=== PATIENT | male | born 1980 | race Caucasian/White ===

== ENCOUNTER 2017-03-13 04:08 | Inpatient (IN) ==
[2017-03-13] MEDS ORDERED: FUROSEMIDE 100 MG/10 ML VIAL IV STA (04:35)
[2017-03-13] MEDS ORDERED: ASPIRIN 325 MG TABLET PO STA (04:35)
[2017-03-13] MEDS ORDERED: ONDANSETRON ODT 4 MG TABLET PO STA (04:35)
[2017-03-13] MEDS ORDERED: MORPHINE 2 MG/1 ML SYRINGE IV STA (04:35)
[2017-03-13] MEDS ORDERED: ENOXAPARIN 100 MG/ML SYRINGE SUBCUT STA (04:35)
[2017-03-13] MEDS ORDERED: NITROGLYCERIN 2% OINT 1 INCH/GM PACK TOP STA (04:35)
--- NOTE | 2017-03-13 04:38 | EKG Report ---
Stationary ECG Study [facility] ER Test Date: 03/13/2017 4:27:05 AM Pat Name: ORQUIDEA FLOWER Department: Room: Gender: M Performance Tester: : 1980 Requested by: Lincoln Taveras Order Number: [id number] Reading MD: LUDY CANADA Intervals [place] Rate: 122 P: 94 [place]: 164 QRS: 130 QRSD: 166 T: -23 QT: 356 QTc: 428 Interpretive Statements SINUS TACHYCARDIA BI-ATRIAL ABNORMALITY LEFT BUNDLE BRANCH BLOCK LIMB LEAD REVERSAL Electronically Signed On 03-13-17 08:26:07 CDT by LUDY CANADA [email or web address]
[2017-03-13] MEDS ORDERED: ENOXAPARIN 120 MG/0.8 ML SYRINGE SUBCUT ONE (04:41)
[2017-03-13] MEDS ORDERED: NITROGLYCERIN 2% OINT 1 INCH/GM PACK TOP ONE (04:42)
[2017-03-13] MEDS ORDERED: FUROSEMIDE 100 MG/10 ML VIAL ONE (04:42)
[2017-03-13] MEDS ORDERED: ONDANSETRON 4 MG/2 ML VIAL ONE (04:42)
[2017-03-13] MEDS ORDERED: MORPHINE 2 MG/1 ML SYRINGE ONE (04:42)
[2017-03-13] MEDS ORDERED: ASPIRIN 325 MG TABLET ONE (04:42)
[2017-03-13] MEDS ORDERED: ONDANSETRON 4 MG/2 ML VIAL IV STA (04:44)
--- NOTE | 2017-03-13 04:48 | Emergency Department Note ---
Patric Herrera Brittany, am scribing for, and in the presence of, Lincoln Taveras MD 04:43. Nitin Hererra Robert M, MD, personally performed the services described in this documentation, ascribed by Priscilla Spivey in my presence, and it is both accurate and complete 448 . Arrival - Arrival Chief Complaint: Shortness of Breath Stated Complaint: chest pain ED Nursing Triage Note: Pt to triage with c/o bilateral legs being swollen, pt states he has CHF and needs fluid drain off of him. Pt c/o feeling SOB also. Mode of Arrival: Wheelchair Limitations: No Limitations Source: Patient, Guardian, RN Notes Reviewed Time Seen by Provider: 03/13/17 04:27 - History of Present Illness HPI Narrative: Patient is a 36 y/o white male presenting to the ED with c/o shortness of breath with an onset of tonight. Patient reports that he was diagnosed with CHF about 2 years ago when he noticed he had difficulty walking across the shop at work due to getting short of breath. After being placed on medications for a year his CHF was well managed. Later in that next year he was not taking his medications, unknown exactly what reason for this and since has been having difficulties managing exacerbations. Patient reports for the past 3 weeks he has been having some bilateral lower extremity edema and shortness of breath, worsening tonight upon waking out of his sleep feeling as if there was some swelling in his chest causing him to be dyspneic. Patient states he is a former patient of [facility] of [place], [place] but has "given up" on their facility and has been in search of new providers. Mother reports that patient presented to [facility] on March 07 and thought he would've gotten admitted but was DC'd. Patient presented to another facility days later and was admitted and recently DC'd. Patient has been on Lasix, but mother believes his current dosage is not enough. She states patient has a history of Anxiety Problems and at times will have Panic Attacks and hyperventilate. Prior to cutting off his care at [facility] patient states he at one time was supposed to have some stents placed, but never did. He has no other complaint/pain. Allergies/Adverse Reactions: Allergies Allergy/AdvReac Type Severity Reaction Status Date / Time No Known Allergies Allergy Unverified 03/13/17 04:16 Home Medications: Home Medications Medication Instructions Recorded Confirmed Type Furosemide 40 mg PO 03/13/17 History Metoprolol Tartrate 50 mg PO 03/13/17 History Potassium Chloride [Klor-Con M20] 20 meq PO 03/13/17 History levoFLOXacin [Levofloxacin Tab] 750 mg PO 03/13/17 History Review of System - Review of System 12 point system: reviewed and no additional remarkable complaints except as stated - Review of System Constitutional: Absent: chills, diaphoresis, fever Eyes: Absent: vision change Head/Ears/Nose/Throat: Absent: nasal drainage, sore throat Respiratory: Present: as per HPI, respiratory distress Cardiovascular: Present: edema. Absent: chest pain Gastrointestinal: Absent: abdominal pain, nausea, vomiting, diarrhea, constipation Genitourinary male: Absent: urgency, dysuria, frequency Musculoskeletal: Absent: arm pain, back pain, leg pain, neck pain Skin: Absent: rash Psychiatric: Present: anxiety Endocrine: Absent: fatigue Hematological/Lymphatic: Absent: easy bleeding, easy bruising Medical,Surgical,& Family Hx - Medical History Cardio: History of: CHF - Social History Smoking Status: Current every day smoker Frequency of Alcohol Use: None Type of Drug Use: None Exam Vital Signs: Vital Signs Temperature 97.5 F L 03/13/17 04:40 Pulse Rate 122 H 03/13/17 04:40 Respiratory Rate 20 03/13/17 05:00 Blood Pressure 131/81 03/13/17 04:40 O2 Sat by Pulse Oximetry 99 03/13/17 04:10 - General General appearance: alert, in no apparent distress - Head Head exam: Present: atraumatic, normocephalic, normal inspection - Eye Eye exam: Present: normal appearance, PERRL, EOMI - ENT ENT exam: Present: normal exam, normal oropharynx - Neck Neck exam: Present: normal inspection, full ROM, trachea midline - Chest Chest inspection: Present: normal inspection, symmetric chest wall rise - Respiratory Respiratory exam: Present: rhonchi (rhonchi bilaterally). Absent: normal lung sounds bilaterally - Cardiovascular Cardiovascular exam: Present: normal rhythm, tachycardia, normal heart sounds. Absent: regular rate - Abdominal Exam Abdominal exam: Present: soft, normal bowel sounds. Absent: distention, tenderness - Extremities Exam Extremities exam: Present: full ROM, pedal edema (+4 pitting edema to bilateral lower extremities). Absent: normal inspection (erythematous and warm to touch bilateral lower extremities) - Back Exam Back exam: Present: normal inspection - Neurological Exam Neurological exam: Present: alert, oriented X3, CN II-XII intact. Absent: motor sensory deficit - Psychiatric Psychiatric exam: Present: normal affect, normal mood - Skin Skin exam: Present: warm, dry Course - Reevaluation(s) Reevaluation #1: The patient has had a relatively extensive workup performed at [facility] in [place]. Ejection fraction was determined to be 15% on recent echocardiogram there. Additionally as noted the patient has in the past using methamphetamine and alcohol. The patient confessed that he did use meth 2 days ago. He has been noncompliant with his medication. The records at [place] indicates he has also had pulmonary emboli and that these resulted in him being on lifelong Coumadin that he is not taking. Time: 05:23 - Consultations Consultation #1: Discussed the patient with Dr. Julien, bottom saw operator centrifugal station operator, who feels the patient should be admitted to medical service and he can be consulted given his other medical problems. Time: 05:46 Consultation #2: Dr. Elise, the hospitalist, will admit the patient. Time: 05:46 Results - Labs CBC & BMP: 03/13/17 04:35 03/13/17 04:35 Lab Results: I have reviewed the patients labs Labs: Lab Results WBC 8.7 T/CUMM (4-12) 03/13/17 04:35 RBC 4.39 MC/CUMM (3.8-5.5) 03/13/17 04:35 Hgb 12.4 GM/DL (14.0-18.0) L 03/13/17 04:35 Hct 39.3 VOL% (42.0-52.0) L 03/13/17 04:35 MCV 89.5 FL (87-102) 03/13/17 04:35 MCH 28 PG (27-34) 03/13/17 04:35 MCHC 31.6 GM/DL (32-36) L 03/13/17 04:35 RDW 14.5 % (9.3-17.3) 03/13/17 04:35 Plt Count 312 T/CUMM (130-400) 03/13/17 04:35 MPV 9.7 FL (9.6-12.0) 03/13/17 04:35 Neut % (Auto) 67.7 % (38.7-73.9) 03/13/17 04:35 Lymph % (Auto) 19.5 % (21.2-54.2) L 03/13/17 04:35 [place] % (Auto) 10.0 % (1.7-12.7) 03/13/17 04:35 Eos % (Auto) 1.7 % (0.00-10.9) 03/13/17 04:35 Baso % (Auto) 0.8 % (0.0-0.8) 03/13/17 04:35 Neut # (Auto) 5.9 10*3/uL (1.4-7.4) 03/13/17 04:35 Lymph # (Auto) 1.7 10*3/uL (1.4-4.0) 03/13/17 04:35 [place] # (Auto) 0.9 10*3/uL (0.11-0.8) H 03/13/17 04:35 Eos # (Auto) 0.2 10*3/uL (0.0-0.87) 03/13/17 04:35 Baso # (Auto) 0.1 10*3/uL (0.0-0.2) 03/13/17 04:35 Immature Gran % 0.3 % 03/13/17 04:35 Nucleated RBC % 0.0 /100WBC 03/13/17 04:35 Immature Gran # 0.03 # 03/13/17 04:35 Nucleated RBCs # 0.00 10*3/uL 03/13/17 04:35 INR 1.3 03/13/17 04:35 PT Patient/Control Mix 13.6 SECS 03/13/17 04:35 Circ Anticoag PTT 28.0 SECS (0-40) 03/13/17 04:35 Sodium 134 MMOL/L (136-145) L 03/13/17 04:35 Potassium 3.6 MMOL/L (3.5-5.1) 03/13/17 04:35 Chloride 97 MMOL/L (98-107) L 03/13/17 04:35 Carbon Dioxide 27 MMOL/L (21-32) 03/13/17 04:35 Anion Gap 13.6 MMOL/L (5.0-15.0) 03/13/17 04:35 BUN 22 MG/DL (7-18) H 03/13/17 04:35 Creatinine 1.30 MG/DL (0.70-1.30) 03/13/17 04:35 GFR Calculation 92 ML/MIN 03/13/17 04:35 BUN/Creatinine Ratio 16.00 RATIO (6.00-20.00) 03/13/17 04:35 Glucose 70 MG/DL (74-106) L 03/13/17 04:35 Calculated Osmolality 268.2 MOS/KG (273-304) L 03/13/17 04:35 Calcium 8.2 MG/DL (8.5-10.1) L 03/13/17 04:35 Magnesium 2.2 MG/DL (1.8-2.4) 03/13/17 04:35 Total Bilirubin 0.80 MG/DL (0.2-1.0) 03/13/17 04:35 AST 44 U/L (0-37) H 03/13/17 04:35 ALT 54 U/L (16-61) 03/13/17 04:35 Alkaline Phosphatase 86 U/L (45-117) 03/13/17 04:35 Troponin I 0.044 NG/ML (0.00-0.045) 03/13/17 04:35 Total Protein 6.0 G/DL (6.4-8.3) L 03/13/17 04:35 Albumin 3.2 G/DL (3.4-5.0) L 03/13/17 04:35 Globulin 2.8 G/DL (2.3-3.5) 03/13/17 04:35 Albumin/Globulin Ratio 1.1 RATIO (1.1-2.2) 03/13/17 04:35 Urine Color Yellow (Yellow) 03/13/17 04:29 Urine Appearance Clear (Clear) 03/13/17 04:29 Urine pH 6.0 (4.5-8.0) 03/13/17 04:29 Ur Specific [place] 1.006 (1.001-1.035) 03/13/17 04:29 Urine Protein Negative MG/DL 03/13/17 04:29 Urine Glucose (UA) Negative mg/dL (Negative) 03/13/17 04:29 Urine Ketones Negative mg/dL (Negative) 03/13/17 04:29 Urine Blood Negative mg/dL (Negative) 03/13/17 04:29 Urine Nitrate Negative (Negative) 03/13/17 04:29 Urine Bilirubin Negative mg/dL (Negative) 03/13/17 04:29 Urine Urobilinogen < 2.0 EU/DL (0.2-1.0) H 03/13/17 04:29 Urine Leukocytes Negative Genie/ul (Negative) 03/13/17 04:29 Urine RBC 1 /HPF (0-4) 03/13/17 04:29 Urine WBC 1 /HPF (0-6) 03/13/17 04:29 Urine Bacteria Occasional /HPF (Few) 03/13/17 04:29 Ur Culture Indicated? Not indicated 03/13/17 04:29 Urine Opiates Screen Positive (Negative) H 03/13/17 04:29 Ur Barbiturates Screen Negative (Negative) 03/13/17 04:29 Ur Phencyclidine Scrn Negative (Negative) 03/13/17 04:29 U Amphetamine/Methamph Positive (Negative) H 03/13/17 04:29 U Benzodiazepines Scrn Negative (Negative) 03/13/17 04:29 U Cocaine Metab Screen Negative (Negative) 03/13/17 04:29 U Cannabinoids Screen Negative (Negative) 03/13/17 04:29 - Diagnostic Findings Procedure: Chest x-ray: image reviewed by me (Cardiomegaly), CT - chest: image reviewed by me (Subsegmental pulmonary embolus/filling defect right lower lobe with distal consolidation/atelectasis. Right greater than left pleural effusion. Cardiomegaly.) Disposition Clinical Impression: Pulmonary embolus with infarction, Cardiomyopathy, Multiple substance abuse, CHF (congestive heart failure) Case discussed with: patient Disposition: Still a Patient Condition: Stable Time of Disposition: 05:46
[2017-03-13 05:02] LABS: Basophils # 0.1 10*3/uL (0.0-0.2); Basophils % 0.8 % (0.0-0.8); Eosinophils # 0.2 10*3/uL (0.0-0.87); Eosinophils % 1.7 % (0.00-10.9); Hematocrit 39.3 VOL% (42.0-52.0); Hemoglobin 12.4 GM/DL (14.0-18.0); Immature Granulocytes % 0.3 %; Immature Granulocytes Absolute 0.03 #; Lymphocytes # 1.7 10*3/uL (1.4-4.0); Lymphocytes % 19.5 % (21.2-54.2); Mean Corpuscular HGB Conc 31.6 GM/DL (32-36); Mean Corpuscular Hemoglobin 28 PG (27-34); Mean Corpuscular Volume 89.5 FL (87-102); Mean Platelet Volume 9.7 FL (9.6-12.0); Monocytes # 0.9 10*3/uL (0.11-0.8); Neutrophils # 5.9 10*3/uL (1.4-7.4); Neutrophils % 67.7 % (38.7-73.9); Platelet Count 312 T/CUMM (130-400); Red Blood Count 4.39 MC/CUMM (3.8-5.5); Red Cell Distribution Width 14.5 % (9.3-17.3); White Blood Count 8.7 T/CUMM (4-12)
[2017-03-13 05:08] LABS: INR 1.3; PT Patient Result 13.6 SECS
[2017-03-13 05:18] LABS: Albumin 3.2 G/DL (3.4-5.0); Bilirubin,Total 0.8 MG/DL (0.2-1.0); Calcium 8.2 MG/DL (8.5-10.1); Magnesium 2.2 MG/DL (1.8-2.4); Osmolality,Calculated 268.2 MOS/KG (273-304); Potassium 3.6 MMOL/L (3.5-5.1); Troponin I Only 0.044 NG/ML (0.00-0.045)
[2017-03-13 05:18] LABS: Apearance,Urine CLEAR (Clear); Bacteria,Urine Occasional /HPF (Few); Bilirubin,Urine Negative (Negative); Blood, Urine Negative (Negative); Glucose,Urine (UA) Negative (Negative); Ketones,Urine Negative (Negative); Nitrite,Urine Negative (Negative); Protein,Urine Negative; RBC,Urine 1 /HPF (0-4); Urine Color Yellow (Yellow); Urine Specific Gravity 1.006 (1.001-1.035); Urine Urobilinogen < 2.0 EU/DL (0.2-1.0); WBC,Urine 1 /HPF (0-6)
[2017-03-13 05:23] LABS: Barbiturates Screen,Urine Negative (Negative); Benzodiazepines Screen,Urine Negative (Negative); Cannabinoid Screen,Urine Negative (Negative); Opiate Screen,Urine Positive (Negative); Phencyclidine Screen,Urine Negative (Negative)
--- NOTE | 2017-03-13 07:00 | Hospitalist History & Physical ---
Assessment and Plan (1) Acute on chronic systolic heart failure Status: Acute Assessment and plan: Has already had a 2 L response to 60 mg IV Lasix given in the emergency department Suspect has been noncompliant with Lasix at home and fluid restriction Continue 40 mg Lasix IV twice daily Monitor on telemetry given recent outside hospital ejection fraction of 15% and acute PE Discharge home goal directed medical therapy Current Visit: Yes (2) Pulmonary embolus with infarction Status: Acute Assessment and plan: Patient noncompliant with Coumadin prescribed at another hospital Continue Lovenox weight-based for anticoagulation Monitor on telemetry and pulse oximetry Current Visit: Yes (3) Multiple substance abuse Status: Acute Assessment and plan: Ongoing problem, poor insight and adherence to therapy The etiology of his heart failure Current Visit: Yes History of Present Illness Chief complaint: Shortness of breath History of present illness: Mr. Hart is a 36 year old male with medical history including polysubstance abuse which includes methamphetamine, chronic systolic heart failure, pulmonary embolism presented with a chief complaint of shortness of breath. Onset abrupt. Duration 3 weeks. Severity is increased over the last week. Made worse with exertion. Associated with rapidly increased swelling and bilateral lower extremities and scrotum. Already relieved somewhat by Lasix given in the emergency department. Patient was previously been seen at other hospitals including [facility] where he was diagnosed with pulmonary embolism. Per the patient he was not discharged on any medications other than Lasix but it seems that he was prescribed Coumadin which she has not been taking. He has a history of being noncompliant with heart failure therapy. He has a two-year history of heart failure which was diagnosed likely as result of his drug abuse. The only other complaints he endorsed was a dry mouth and sore throat. I reviewed the workup done in the emergency department including lab and imaging data. I discussed his case with emergency department providers. Home Medications Medication Instructions Recorded Confirmed Type Furosemide 40 mg PO 03/13/17 History Metoprolol Tartrate 50 mg PO 03/13/17 History Potassium Chloride [Klor-Con M20] 20 meq PO 03/13/17 History levoFLOXacin [Levofloxacin Tab] 750 mg PO 03/13/17 History Allergies Allergy/AdvReac Type Severity Reaction Status Date / Time No Known Allergies Allergy Unverified 03/13/17 04:16 Medical,Surgical,& Family Hx - Medical History Cardio: History of: CHF Psychological: History of: Psychiatric/Substance Abuse Tx Respiratory: History of: Pulmonary Embolism - Family History Family History: Reports;: Family Heart Disease - Social History Smoking Status: Current every day smoker Have you smoked in the last 12 months: Yes Frequency of Alcohol Use: None Type of Drug Use: None Marital Status: Single Lives With:: Parent Functional capacity: independent ambulation Review of systems: - Constitutional Constitutional: Absent: chills, fatigue, fever(s), night sweats, weight loss - EENT Eyes: Absent: blurry vision Ears: Absent: decreased hearing, ear pain Nose, mouth and throat: Present: Dry mouth, sore throat - Cardiovascular Cardiovascular: Present: edema absent: chest pain at rest, chest pain with activity, palpitations - Respiratory Respiratory: Present: Shortness of breath absent: cough, hemoptysis - Gastrointestinal Gastrointestinal: Present: Abdominal pain absent: constipation, diarrhea, dysphagia, hematemesis, hematochezia, melena, nausea, vomiting - Genitourinary Genitourinary: Absent: difficulty urinating, dysuria, hematuria - Musculoskeletal Musculoskeletal: Absent: arthralgias, joint swelling, myalgias - Neurological Neurological: Absent: confusion, dizziness, focal weakness, headache(s), numbness, paresthesias, syncope - Psychiatric Psychiatric: Present: Polysubstance abuse absent: anxiety, depression - Endocrine Endocrine: Absent: cold intolerance, heat intolerance, polydipsia, polyuria - Hematologic/Lymphatic Hematologic/Lymphatic: Absent: easy bleeding, easy bruising, lymphadenopathy Exam - Constitutional Vitals: Period Temp Pulse Resp BP Sys/Gonzalez Pulse Ox Last 24 Hr 97.5 F-97.5 F 122-127 18-20 131-131/81-87 99 General appearance: over weight (Young white male sitting up on stretcher pleasant cooperative) Exam: - Eye Eye exam: Present: EOMI. Absent: conjunctival injection, scleral icterus Pupils: Present: GENO - ENT ENT exam: Present: normal external ear exam, normal oropharynx - Expanded ENT Exam Mouth exam: Present: moist, red inflamed oropharynx - Neck Neck exam: Present: normal inspection. Absent: lymphadenopathy, thyromegaly - Respiratory Respiratory exam: Present: Bibasilar crackles. Absent: accessory muscle use, wheezes - Cardiovascular Cardiovascular exam: Present: Tachycardia, regular rhythm. Absent: diastolic murmur, systolic murmur - Expanded Cardiovascular Exam Peripheral pulses: 2+: posterior tibialis (L), posterior tibialis (R) - GI/Abdominal GI/Abdominal exam: Present: normal bowel sounds, soft. Absent: distended, hyperactive bowel sounds, hypoactive bowel sounds, organomegaly, tenderness, rebound - Extremities Exam Extremities exam: Present: Severe bilateral lower extremity edema - Neurological Exam Neurological exam: Present: alert, oriented X3, CN II-XII intact. Absent: motor sensory deficit - Psychiatric Psychiatric exam: Present: normal affect - Skin Skin exam: Present: warm, dry. Absent: diaphoretic, rash Results - Labs CBC & BMP: 03/13/17 04:35 03/13/17 04:35 - EKG EKG shows: tachycardia (Left bundle branch block) - Diagnostic Findings Procedure: Chest x-ray: report reviewed by me, CT - chest: report reviewed by me
--- NOTE | 2017-03-13 08:02 | CT Report ---
EXAM: CT chest PE study DATE: March 13, 2017 COMPARISON: None REASON: Chest pain, hypoxia Preliminary report was provided by [facility]. TECHNIQUE: Axial images of the chest were obtained after administration of 80 cc of Omnipaque 350 intravenous contrast. Coronal /sagittal reformatted images and MIP coronal/sagittal images were also acquired. The study was performed per pulmonary embolism protocol. Total DLP was 470.2 mGy*cm. FINDINGS: Pulmonary arteries: There is poor opacification of a subsegmental pulmonary artery branch at the basilar portion of the right lower lobe. This is concerning for a pulmonary embolus. Vascular/heart: The thoracic aorta is normal in size without evidence of dissection. There is cardiomegaly. Minimal pericardial fluid is present but may be physiologic. Lymph nodes: There are a few mildly prominent mediastinal lymph nodes. An AP window lymph node on image 58 measures 1.2 cm in short axis diameter. No suspicious axillary or hilar adenopathy is identified. Other mediastinum: Otherwise unremarkable. Chest wall: There is mild anasarca. Lungs: There is mild left pleural fluid and moderate right pleural fluid. No pneumothorax is identified. There are scattered opacities within both lungs, mainly within the lower lobes. This is most consistent with atelectasis and pulmonary edema. Bones: No acute osseous process is seen. Mild degenerative change is noted at the sternomanubrial joint. Upper abdomen: There is minimal ascites within the upper abdomen. IMPRESSION: 1. There is poor opacification of a subsegmental pulmonary artery branch within the right lower lobe. This is concerning for a pulmonary embolus. 2. Cardiomegaly. 3. Mild left pleural fluid and moderate right pleural fluid. 4. There are scattered opacities within both lungs, mainly within the lower lobes. This is most consistent with atelectasis and pulmonary edema. 5. Nonspecific mildly prominent mediastinal lymph nodes. 6. Minimal free fluid within the upper abdomen. The [facility] physician, Dr. Franz, discussed these findings with Dr. Tubbs by telephone on March 13, 2017 at 6:21 AM. This is a critical test. PROCEDURE INTERPRETED AT [facility] DEPARTMENT OF RADIOLOGY Final Report Signed by: Dr. Rimma Robertson
[2017-03-13] MEDS ORDERED: MAGNESIUM SULF RIDER 2 GM in PREMIX 1 EACH IV PRN (08:23)
[2017-03-13] MEDS ORDERED: MAGNESIUM SULF RIDER 4 GM in PREMIX 1 EACH IV PRN (08:23)
--- NOTE | 2017-03-13 09:21 | XRay Report ---
Referring Physician: Lincoln Taveras Exam: XR chest 1V portable Date: March 13, 2017 at 4:42 AM Reason: Shortness of breath Comparison: CT chest PE study March 13, 2017 Findings: The cardiac silhouette is enlarged. The interstitial markings are prominent bilaterally, and there are scattered opacities within both lower lung zones. This is most consistent with pulmonary edema and atelectasis. No pneumothorax is identified, but there is bilateral pleural fluid, right greater than left. No acute osseous process is seen. Impression: 1. Cardiomegaly. 2. The interstitial markings are prominent bilaterally, and there are opacities within both lower lung zones. This is most consistent with pulmonary edema and atelectasis. There is also bilateral pleural fluid, right greater than left. PROCEDURE INTERPRETED AT [facility] DEPARTMENT OF RADIOLOGY Final Report Signed by: Dr. Rimma Robertson
[2017-03-13] MEDS: FUROSEMIDE 40 MG/4 ML VIAL IV SCH ×2 (13:26→15:44)
[2017-03-13] MEDS: LISINOPRIL 2.5 MG TABLET PO SCH (15:44)
[2017-03-13] MEDS: CLORAZEPATE 3.75 MG TABLET PO PRN (18:06)
[2017-03-13] MEDS: WARFARIN 5 MG TABLET PO SCH (18:06)
[2017-03-13] MEDS: NICOTINE 21 MG/24 HR PATCH TRANSDERM PRN (18:07)
[2017-03-13] MEDS: ENOXAPARIN 120 MG/0.8 ML SYRINGE SUBCUT SCH (18:07)
[2017-03-14] MEDS: CLORAZEPATE 3.75 MG TABLET PO PRN ×2 (00:35→18:05)
[2017-03-14] MEDS: ACETAMINOPHEN 325 MG TABLET PO PRN (00:35)
[2017-03-14 04:21] LABS: Basophils # 0.1 10*3/uL (0.0-0.2); Basophils % 1.1 % (0.0-0.8); Eosinophils # 0.2 10*3/uL (0.0-0.87); Eosinophils % 2.3 % (0.00-10.9); Hematocrit 38.7 VOL% (42.0-52.0); Hemoglobin 12.2 GM/DL (14.0-18.0); Immature Granulocytes % 0.3 %; Immature Granulocytes Absolute 0.02 #; Lymphocytes # 1.6 10*3/uL (1.4-4.0); Mean Corpuscular HGB Conc 31.5 GM/DL (32-36); Mean Corpuscular Hemoglobin 28 PG (27-34); Mean Corpuscular Volume 87.6 FL (87-102); Mean Platelet Volume 10.4 FL (9.6-12.0); Monocytes # 0.8 10*3/uL (0.11-0.8); Monocytes % 10.6 % (1.7-12.7); Neutrophils # 5.2 10*3/uL (1.4-7.4); Neutrophils % 65.7 % (38.7-73.9); Platelet Count 344 T/CUMM (130-400); Red Blood Count 4.42 MC/CUMM (3.8-5.5); Red Cell Distribution Width 14.7 % (9.3-17.3); White Blood Count 7.9 T/CUMM (4-12)
[2017-03-14 04:25] LABS: INR 1.2; PT Patient Result 12.8 SECS
[2017-03-14 04:44] LABS: Albumin 3.2 G/DL (3.4-5.0); Calcium 8.4 MG/DL (8.5-10.1); Osmolality,Calculated 270.2 MOS/KG (273-304); Phosphorous 4.1 MG/DL (2.5-4.9); Potassium 3.8 MMOL/L (3.5-5.1)
[2017-03-14] MEDS: ENOXAPARIN 120 MG/0.8 ML SYRINGE SUBCUT SCH ×2 (06:29→18:05)
--- NOTE | 2017-03-14 08:25 | Cardiology Consult Note ---
Assessment and Plan - Time spent with patient Time spent with patient: Greater than 30 minutes (Examination documentation chart reviewed) (1) Non compliance w medication regimen Status: Chronic Assessment and plan: The patient attest that he is going to do right at this point. He also states that he quit substances sometime ago but his urine drug screen is positive for opiates and amphetamines. This is part of his underlying pathology Current Visit: Yes (2) Acute on chronic systolic heart failure Status: Acute Assessment and plan: Both systolic and diastolic dysfunction suspect related in some way to his substance abuse. Long differential. He does have a family history of coronary artery disease his dad had a myocardial infarction age 60 day. We will try to get records and not reinvent or repeat things that have been done in the past. He has a left bundle branch block and if with medical standard standard medical therapy he does not improve he would be a candidate for CRTD. He first must demonstrate compliance with his medical regimen. If he does not become compliant and avoid the substances that are contributing to his heart failure his prognosis is extremely poor. Current Visit: Yes (3) Cardiomyopathy Status: Chronic Assessment and plan: Likely due to his polysubstance abuse but diagnosis unknown at this point. Current Visit: Yes Qualifiers: Cardiomyopathy type: unspecified Qualified Code(s): I42.9 - Cardiomyopathy , unspecified (4) Multiple substance abuse Status: Chronic Current Visit: Yes (5) Pulmonary embolus with infarction Status: Acute Assessment and plan: This by history is subacute. Recommend venous Dopplers if they are negative would put CORDELIA hose on the patient. Current Visit: Yes History of Present Illness - Data of Consult Patient: new to practice Consult date: 03/14/17 Requesting Physician: Tae Pickens - Consult Narrative Reason for consult: HF History of present illness: Mr. Hart is a 36 year old male with substance abuse both alcohol and amphetamine and other recreational drugs who has previously established relationship with a medical diagnostic radiographer at [facility] in [place]. Apparently according to the chart but not told to me by the patient he is previously been diagnosed with pulmonary emboli approximately 3 weeks ago at that facility. He states he has been up here once before in this hospital however we have no records of that suspicious that it was [facility] and I will request records. The patient states that he was told several years ago that his EF was 15% and he was told he can increase to 20 and increased in the mid 40s but then last week or 2 weeks ago he was told "up here " that it was back down to 20%. He denies ever having a left heart catheterization but describes a pharmacologic nuclear stress test. The patient seems to be unreliable historian I do not know if it is because of his substance abuse or if it is just from lack of adequate memory but I do not think all this adds up. I will try to get records from [facility] and from [place]. The patient clearly has decompensated heart failure and markedly abnormal cardiac exam there is no doubt he has cardiomyopathy. It appears based on the interpretation by the radiologist at this pulmonary embolism if it is there is a rather peripheral event. He has significant lower extremity edema. He states that he has diuresed quite well since she is he has been here and feels better. I have reviewed Dr. Pickens's note and the patient is in the process of being anticoagulated he has been placed on all the appropriate medicines including MAGGY inhibitor and angiotensin receptor srinivasan and anticoagulation. It seems to me as though he has been treated in the past but has demonstrated recurrent episodes of noncompliance and has very poor insight into his medical problem. His mother was at the bedside and I talked him about the importance of compliance. The patient attested to me that he is quit all his substance abuse is and will be compliant. If he does not mend his ways, his prognosis for long-term is extremely poor CC: Tae Pickens MD - Home Medications and Allergies Home Medications: Home Medications Medication Instructions Recorded Confirmed Type Furosemide 40 mg PO DAILY 03/13/17 03/13/17 History Metoprolol Tartrate 50 mg PO BID 03/13/17 03/13/17 History Potassium Chloride [Klor-Con M20] 20 meq PO DAILY 03/13/17 03/13/17 History levoFLOXacin [Levofloxacin Tab] 750 mg PO DAILY 03/13/17 03/13/17 History Allergies/Adverse Reactions: Allergies Allergy/AdvReac Type Severity Reaction Status Date / Time No Known Allergies Allergy Unverified 03/13/17 04:16 - Constitutional Constitutional: Present: daytime sleepiness, weakness, weight gain. Absent: anorexia, chills, excessive sweating, lethargy, malaise, night sweats, stops breathing during sleep - EENT Eyes: Absent: blurry vision Ears: Absent: ear discharge Nose, mouth and throat: Present: headache(s). Absent: dysphagia, epistaxis - Cardiovascular Cardiovascular: Present: dyspnea, dyspnea on exertion, edema, orthopnea. Absent : chest pain at rest, chest pain with activity - Respiratory Respiratory: Present: dyspnea, dyspnea on exertion - Gastrointestinal Gastrointestinal: Absent: abdominal pain - Genitourinary Genitourinary: Absent: dysuria, hematuria, nocturia - Musculoskeletal Musculoskeletal: Absent: back pain, joint swelling - Neurological Neurological: Absent: disequilibrium, dizziness - Psychiatric Psychiatric: Present: anxiety, depression - Endocrine Endocrine: Absent: cold intolerance, heat intolerance - Hematologic/Lymphatic Hematologic/Lymphatic: Absent: easy bleeding, easy bruising Medical,Surgical,& Family Hx - Medical History Cardio: History of: CHF (Presumed nonischemic cardiomyopathy workup performed at [facility]) Psychological: History of: Psychiatric/Substance Abuse Tx Respiratory: History of: Pulmonary Embolism - Surgical History Cardiac Surgeries: Patient Denies: Cardiac Catheterization Reproductive Surgeries: Patient denies;: Genitourinary Surgery - Family History Family History: Reports;: Family Heart Disease - Social History Smoking Status: Current every day smoker Type of Drug Use: Opiates, Methamphetamine Marital Status: Lives With:: Mother Functional capacity: independent ambulation Physical Examination Vital Signs Temp Pulse Resp BP Pulse Ox 97.5 F L 127 H 18 131/87 99 03/13/17 04:10 03/13/17 04:10 03/13/17 04:10 03/13/17 04:10 03/13/17 04:10 General: Present: Other (Disheveled and appears chronically ill) HEENT: Absent: Pallor Neck: Present: Supple Neck, Midline Trachea, JVD/HJR (Estimated at 8 cm of water he does have hepatojugular reflux) Cardiac: Present: S1/S2, S3, S4 (PMI is laterally displaced he has a resting tachycardia) Lungs: Present: Decreased Breath Sounds, Bibasilar Rales Neuro: Present: Cranial Nerve 2-12 Intact Abdomen: Present: Soft, Active Bowel Sounds Extremities: Present: +3 Edema Result/EKG - Labs CBC & BMP: 03/14/17 03:19 03/14/17 03:19 Labs: Laboratory Results - last 24 hr 03/14/17 03/14/17 03/14/17 03:19 03:19 03:19 WBC 7.9 RBC 4.42 Hgb 12.2 L Hct 38.7 L MCV 87.6 MCH 28 MCHC 31.5 L RDW 14.7 Plt Count 344 MPV 10.4 Neut % (Auto) 65.7 Lymph % (Auto) 20.0 L [place] % (Auto) 10.6 Eos % (Auto) 2.3 Baso % (Auto) 1.1 H Neut # (Auto) 5.2 Lymph # (Auto) 1.6 [place] # (Auto) 0.8 Eos # (Auto) 0.2 Baso # (Auto) 0.1 Immature Gran % 0.3 Nucleated RBC % 0.0 Immature Gran # 0.02 Nucleated RBCs # 0.00 INR 1.2 PT Patient/Control Mix 12.8 Sodium 134 L Potassium 3.8 Chloride 97 L Carbon Dioxide 26 Anion Gap 14.8 BUN 18 Creatinine 1.00 GFR Calculation 21 BUN/Creatinine Ratio 18.00 Glucose 118 H Calculated Osmolality 270.2 L Calcium 8.4 L Phosphorus 4.1 Albumin 3.2 L - EKG EKG results: interpreted by me (Sinus tachycardia with left bundle branch block) Quality Measures - VTE Contraindication to Pharmacological VTE Prophylaxis: Already on Theraputic Agent , No Prophylaxis Needed Contraindication to Mechanical VTE Prophylaxis: Current Diagnosis of DVT - Stroke Symptom Onset Unknown: No
[2017-03-14] MEDS: METOPROLOL TARTRATE 25 MG TABLET PO SCH ×2 (08:41→21:44)
[2017-03-14] MEDS: FUROSEMIDE 40 MG/4 ML VIAL IV SCH (08:41)
[2017-03-14] MEDS: SPIRONOLACTONE 25 MG TABLET PO SCH (08:42)
[2017-03-14] MEDS: POTASSIUM CHLORIDE 20 MEQ TABLET PO SCH ×2 (08:42→21:44)
[2017-03-14] MEDS: LISINOPRIL 2.5 MG TABLET PO SCH (08:42)
[2017-03-14] MEDS: MAGNESIUM OXIDE 400 MG TABLET PO SCH ×2 (08:43→21:44)
--- NOTE | 2017-03-14 11:21 | Hospitalist Progress Note ---
Assessment and Plan - Time spent with patient Time spent with patient: Greater than 30 minutes (1) Pulmonary embolus with infarction Status: Acute Assessment and plan: subacute. On LMWH and coumadin with intent to continue both until INR therapeutic for 2 days or more. Current Visit: Yes (2) Multiple substance abuse Status: Chronic Assessment and plan: pt reports being clean and sober despite positive UDS Current Visit: Yes (3) Acute on chronic systolic heart failure Status: Acute Assessment and plan: Prior echo with est LVEF 15% in 02/2017 at other facility. Cardiology consulted, thank you. Pt has diuresed well; will de-escalate to po Lasix today. Aldactone was added. Pt now on low dose MAGGY-I, aldactone, and low dose b-srinivasan in addition to lasix. Monitor response. Current Visit: Yes (4) Non compliance w medication regimen Status: Chronic Current Visit: Yes Hospitalist: Subjective Interval history: Feels better with less sob Exam - Constitutional Vitals: Period Temp Pulse Resp BP Sys/Gonzalez Pulse Ox Last 24 Hr 96.3 F-98.7 F 111-129 18-20 100-119/57-84 96-100 General appearance: no acute distress (resting quietly) - Head Head exam: Present: normal inspection, normocephalic, atraumatic - Eye Eye exam: Present: EOMI. Absent: conjunctival injection, scleral icterus Pupils: Present: GENO - ENT ENT exam: Present: normal exam - Neck Neck exam: Present: normal inspection. Absent: lymphadenopathy - Respiratory Respiratory exam: Present: rales. Absent: accessory muscle use - Cardiovascular Cardiovascular exam: Present: regular rate and rhythm - GI/Abdominal GI/Abdominal exam: Present: normal bowel sounds. Absent: distended, guarding - Extremities Exam Extremities exam: Present: full ROM, edema - Neurological Exam Neurological exam: Present: alert, oriented X3 - Psychiatric Psychiatric exam: Present: normal affect, normal mood - Skin Skin exam: Present: normal color, warm, dry Results - Labs CBC & BMP: 03/14/17 03:19 03/14/17 03:19 Quality Measures - VTE Contraindication to Pharmacological VTE Prophylaxis: Already on Theraputic Agent , No Prophylaxis Needed Contraindication to Mechanical VTE Prophylaxis: Current Diagnosis of DVT - Stroke Symptom Onset Unknown: No
--- NOTE | 2017-03-14 11:22 | Ultrasound Report ---
Referring physician: Tae Pickens MD Exam: Bilateral lower extremity venous ultrasound Date: March 14, 2017 Comparison: None Reason: Recent pulmonary embolus Technique: Duplex scan of the bilateral lower extremity veins was performed using B-Mode/grayscale imaging, compression, Doppler spectral analysis and color flow. Ultrasound images were captured and stored. Findings: There is no evidence of thrombus within the left or right common femoral veins, saphenous veins, superficial femoral veins or popliteal veins. Evaluation for compression and augmentation is difficult due to the patient's edematous legs. However, no convincing abnormal compression is seen. Normal color flow and spectral analysis are observed. Note is made of a mildly enlarged left inguinal lymph node which measures 2.2 x 2.0 x 0.8 cm. Impression: 1. No evidence of deep venous thrombosis within either lower extremity. 2. Mildly enlarged left inguinal lymph node. PROCEDURE INTERPRETED AT [facility] DEPARTMENT OF RADIOLOGY Final Report Signed by: Dr. Rimma Robertson
[2017-03-14] MEDS: FUROSEMIDE 40 MG TABLET PO SCH (15:17)
[2017-03-14] MEDS: WARFARIN 5 MG TABLET PO SCH (18:05)
[2017-03-14] MEDS: NICOTINE 21 MG/24 HR PATCH TRANSDERM PRN (18:05)
[2017-03-15 05:22] LABS: Basophils # 0.1 10*3/uL (0.0-0.2); Basophils % 1.1 % (0.0-0.8); Eosinophils # 0.2 10*3/uL (0.0-0.87); Eosinophils % 2.2 % (0.00-10.9); Hematocrit 38.7 VOL% (42.0-52.0); Hemoglobin 12.1 GM/DL (14.0-18.0); Immature Granulocytes % 0.4 %; Immature Granulocytes Absolute 0.03 #; Lymphocytes # 1.5 10*3/uL (1.4-4.0); Lymphocytes % 18.6 % (21.2-54.2); Mean Corpuscular HGB Conc 31.3 GM/DL (32-36); Mean Corpuscular Hemoglobin 28 PG (27-34); Mean Corpuscular Volume 88.4 FL (87-102); Monocytes # 0.9 10*3/uL (0.11-0.8); Monocytes % 11.2 % (1.7-12.7); Neutrophils # 5.2 10*3/uL (1.4-7.4); Neutrophils % 66.5 % (38.7-73.9); Platelet Count 328 T/CUMM (130-400); Red Blood Count 4.38 MC/CUMM (3.8-5.5); Red Cell Distribution Width 14.8 % (9.3-17.3); White Blood Count 7.9 T/CUMM (4-12)
[2017-03-15 05:55] LABS: Calcium 8.4 MG/DL (8.5-10.1); Osmolality,Calculated 273.1 MOS/KG (273-304); Potassium 4.4 MMOL/L (3.5-5.1)
[2017-03-15] MEDS: ENOXAPARIN 120 MG/0.8 ML SYRINGE SUBCUT SCH (06:49)
[2017-03-15] MEDS: CLORAZEPATE 3.75 MG TABLET PO PRN ×2 (07:55→21:01)
[2017-03-15] MEDS: POTASSIUM CHLORIDE 20 MEQ TABLET PO SCH ×2 (08:49→20:58)
[2017-03-15] MEDS: LISINOPRIL 2.5 MG TABLET PO SCH (08:49)
[2017-03-15] MEDS: METOPROLOL TARTRATE 25 MG TABLET PO SCH (08:49)
[2017-03-15] MEDS: FUROSEMIDE 40 MG TABLET PO SCH (08:50)
[2017-03-15] MEDS: MAGNESIUM OXIDE 400 MG TABLET PO SCH ×2 (08:50→20:58)
[2017-03-15] MEDS: SPIRONOLACTONE 25 MG TABLET PO SCH ×2 (08:50→20:53)
[2017-03-15] MEDS ORDERED: FUROSEMIDE 80 MG TABLET PO SCH (12:27)
--- NOTE | 2017-03-15 13:05 | XRay Report ---
Exam: XR KUB Date: 03/15/2017 12:31 PM Comparison: None Indication: Constipation Technique:[Supine abdomen] Findings: Nonobstructive bowel gas pattern. Increased fecal material in the colon. No obvious mass or acute osseous findings noted. Impression: Increased fecal material in the colon consistent with constipation. PROCEDURE INTERPRETED AT [facility] DEPARTMENT OF RADIOLOGY Final Report Signed by: Dr. Xochitl Gonsalez
[2017-03-15] MEDS: FUROSEMIDE 40 MG/4 ML VIAL IV SCH ×2 (13:27→15:49)
--- NOTE | 2017-03-15 15:20 | Hospitalist Progress Note ---
Assessment and Plan (1) Acute on chronic systolic heart failure Status: Acute Assessment and plan: Continue IV Lasix 40 mg IV twice daily with potassium supplementation, echo Current Visit: Yes (2) Pulmonary embolus with infarction Status: Acute Assessment and plan: Change to Eliquis. Current Visit: Yes (3) Cardiomyopathy Status: Chronic Assessment and plan: EF of 15%, cardiology following, ordered echo Current Visit: Yes Qualifiers: Cardiomyopathy type: unspecified Qualified Code(s): I42.9 - Cardiomyopathy , unspecified (4) Multiple substance abuse Status: Chronic Assessment and plan: Patient's urine drug screen positive for amphetamines and opiates. Current Visit: Yes (5) Constipation Status: Acute Assessment and plan: kub shows severe constipation Current Visit: Yes Hospitalist: Subjective Interval history: Patient is extremely anxious. He is already getting Tranxene as needed, feels extremely short of breath. Patient reports that he does not think his bowels are moving as her spouse tube. His mother was at bedside and said they are applying for disability most likely going to get it. I would change him to Eliquis as more likely to get assistance. Exam - Constitutional Vitals: Period Temp Pulse Resp BP Sys/Gonzalez Pulse Ox Last 24 Hr 97.2 F-98.1 F 118-123 19-20 118-122/75-86 95-100 Exam: Heart Rate-[RRR] Lungs-[diminished] GI-[+bs soft, NT] Ext-[3+ pitting edema up to abdomen] Neuro [Motor 5/5], [alert and oriented times 3] psych [anxious mood and affect] General [mild acute distress] Results - Labs CBC & BMP: 03/15/17 04:36 03/15/17 04:36 Lab Results: I have reviewed the past 24 hour labs - Diagnostic Findings Procedure: Abdominal x-ray: report reviewed by me (Very constipated.), CT - chest: report reviewed by me (Right lower lobe segmental embolus, bilateral pulmonary edema), Ultrasound: report reviewed by me (No evidence of DVT) Quality Measures - VTE Contraindication to Pharmacological VTE Prophylaxis: Already on Theraputic Agent , No Prophylaxis Needed Contraindication to Mechanical VTE Prophylaxis: Current Diagnosis of DVT - Stroke Symptom Onset Unknown: No
[2017-03-15] MEDS ORDERED: MAGNESIUM CITRATE 300 ML BOTTLE PO ONE (15:24)
[2017-03-15] MEDS ORDERED: METOPROLOL TARTRATE 25 MG TABLET PO SCH (15:33)
[2017-03-15] MEDS: POLYETHYLENE GLYCOL POWDER 17 GM PACK PO SCH (15:49)
--- NOTE | 2017-03-15 16:37 | Cardiology Progress Note ---
Whitney Herrera April, RN, am scribing for, and in the presence of, Tae Solares MD 16:31. Assessment and Plan (1) Acute on chronic systolic heart failure Status: Acute Assessment and plan: Have a lot of edema. We will increase his diuretic as well as his beta srinivasan. Patient long-term would benefit from AICD and resynchronization therapy but his compliance is great question. Current Visit: Yes (2) Pulmonary embolus with infarction Status: Acute Assessment and plan: He is on anticoagulation. Current Visit: Yes (3) Cardiomyopathy Status: Chronic Assessment and plan: This is quite severe. We're awaiting his echocardiogram here. At present the patient needs to maximize medication and be compliant with this. Current Visit: Yes Qualifiers: Cardiomyopathy type: unspecified Qualified Code(s): I42.9 - Cardiomyopathy , unspecified (4) Multiple substance abuse Status: Chronic Assessment and plan: This is a chronic issue. It is doubtful the patient is going to stop. Current Visit: Yes (5) Non compliance w medication regimen Status: Chronic Assessment and plan: This is an issue for the patient especially his medical problems or even consideration of a AICD/DRIVER MEDIC. Current Visit: Yes Cardiology - PN: Subj Interval history: [place]: At [facility] in [place] Mr. Hart is a poor historian, he does have a history of both alcohol and recreational drug abuse. On admission he stated that he had quit all of his substances some time ago, but his urine drug screen was positive for opiates and amphetamines. He presented to the emergency department March 13 with complaints of shortness of breath. He told him he had been diagnosed with a pulmonary embolus in [place] about [address] of the chest on admission showed an area within the right lower lobe that was concerning for pulmonary embolus as well as left pleural fluid. He is on Lovenox injections as well as Coumadin 5 mg daily. According to the record he was given Lasix 60 mg IV in the emergency department and had a 2 L output in response. Echocardiogram done February 23, 2017 at another facility showed ejection fraction of 15%, moderate mitral regurgitation and moderate to severe tricuspid regurgitation, and at least a grade 3 diastolic dysfunction with restrictive pattern. EKG on admission was sinus tachycardia with heart rate of 122. Currently he is resting in bed in no acute distress. He denies any chest pain this morning. He states he had some last night but he burped a couple times and it went away. He tells me he has had episodes this morning of nausea and dizziness as well as feeling like he might pass out. He said he was having those when he first came in and after the IV Lasix and improved, but he thinks it may related to the fact that his Lasix has been changed to p.o. He is using oxygen via nasal cannula intermittently. He reports his lower extremity edema is less than on admission. Telemetry monitoring currently shows sinus tachycardia with heart rates in the 120s. Blood pressures have been stable, this morning 120/75. Labs are unremarkable. INR yesterday was 1.2. His weight is unchanged. We will continue to aggressively try to treat his edema. As noted the patient's cardiomyopathy is quite severe and we are waiting his new echocardiogram. Some outside records with an ejection fraction of 50% last month with dilated left ventricle. Patient has severe global hypokinesis dilation of the right ventricle. Biatrial enlargement. Moderate severe tricuspid regurgitation and moderate mitral regurgitation. Severely elevated right-sided pressures. For his history is that of noncompliance. He had a positive drug screen this admission. Exam (Progress Note) - Constitutional Vitals: Period Temp Pulse Resp BP Sys/Gonzalez Pulse Ox Last 24 Hr 97.1 F-98.1 F 110-123 19-20 113-122/71-86 95-100 General appearance: no acute distress, over weight - Head Head exam: Absent: abrasion, hematoma - Eye Eye exam: Absent: periorbital swelling, laceration to eyelids - Respiratory Respiratory exam: Present: clear to auscultation bilaterally, other (Oxygen use intermittently). Absent: accessory muscle use, chest wall tenderness - Cardiovascular Cardiovascular exam: Present: regular rate and rhythm, tachycardia - GI/Abdominal GI/Abdominal exam: Present: normal bowel sounds, soft. Absent: distended, tenderness - Extremities Exam Extremities exam: Present: edema (2+ bilateral lower extremity with edema extending to his buttocks.) - Neurological Exam Neurological exam: Present: alert, oriented X3 - Psychiatric Psychiatric exam: Present: normal affect, normal mood - Skin Skin exam: Present: warm, dry Result/EKG - Labs CBC & BMP: 03/15/17 04:36 03/15/17 04:36 Lab Results: I have reviewed the past 24 hour labs Labs: Laboratory Results - last 24 hr 03/15/17 03/15/17 04:36 04:36 WBC 7.9 RBC 4.38 Hgb 12.1 L Hct 38.7 L MCV 88.4 MCH 28 MCHC 31.3 L RDW 14.8 Plt Count 328 MPV 10.0 Neut % (Auto) 66.5 Lymph % (Auto) 18.6 L [place] % (Auto) 11.2 Eos % (Auto) 2.2 Baso % (Auto) 1.1 H Neut # (Auto) 5.2 Lymph # (Auto) 1.5 [place] # (Auto) 0.9 H Eos # (Auto) 0.2 Baso # (Auto) 0.1 Immature Gran % 0.4 Nucleated RBC % 0.0 Immature Gran # 0.03 Nucleated RBCs # 0.00 Sodium 135 L Potassium 4.4 Chloride 96 L Carbon Dioxide 29 Anion Gap 14.4 BUN 15 Creatinine 1.30 GFR Calculation 92 BUN/Creatinine Ratio 11.00 Glucose 150 H Calculated Osmolality 273.1 Calcium 8.4 L - Impressions Impressions: Telemetry with sinus tachycardia. - EKG EKG results: interpreted by me EKG shows: tachycardia, sinus rhythm Quality Measures - VTE Contraindication to Pharmacological VTE Prophylaxis: Already on Theraputic Agent , No Prophylaxis Needed Contraindication to Mechanical VTE Prophylaxis: Current Diagnosis of DVT - Stroke Symptom Onset Unknown: No I, Tae Solares MD, personally performed the services described in this documentation, ascribed by Juanita Olson RN in my presence, and it is both accurate and complete 636 .
[2017-03-15] MEDS: metOLazone 5 MG TABLET PO SCH (17:03)
[2017-03-15] MEDS: APIXABAN 5 MG TABLET PO SCH ×2 (17:06→20:55)
--- NOTE | 2017-03-15 18:44 | ECHO Report ---
Abdirashid Hart Exam Date: 03/15/2017 15:55 Referring Physician: Technologist: Marti Patel RDCS Age: 36 Ht (in): 72 Wt (lb): 237 Gender: M Exam Location: [facility] Echo Indications: Acute on chronic systolic (congestive) heart failure, Cardiomyopathy, unspecified, Multiple substance abuse, Edema, unspecified, PE, Dyspnea, unspecified, Orthopnea BP: 120 / 75 HR: 122 Rhythm: Sinus Technical Quality: Good IMPRESSIONS 1. Left ventricle is at least moderately dilated with severe global hypokinesis and ejection fraction of 15%. 2. Right and left atrium are moderately dilated. 3. Right ventricle is normal size and function. 4. Mild to moderate mitral valve regurgitation and otherwise unremarkable valve. 5. Tricuspid aortic valve without Doppler abnormalities. 6. Mild to moderate tricuspid valve regurgitation. 7. Mild pulmonic valve insufficiency. 7. Mildly elevated right-sided pressures. MEASUREMENTS (Male / Female) Normal Values 2D ECHO LV Diastolic Diameter PLAX 6.5 cm 4.2 - 5.9 / 3.9 - 5.3 cm LV Systolic Diameter PLAX 6.4 cm LV Fractional Shortening PLAX 1.1 % IVS Diastolic Thickness 0.9 cm 0.6 - 1.0 / 0.6 - 0.9 cm LVPW Diastolic Thickness 0.9 cm 0.6 - 1.0 / 0.6 - 0.9 cm RV Internal Dim ED PLAX 4.5 cm Aortic Root Diameter 3.2 cm LA Systolic Diameter LX 5.3 cm 3.0 - 4.0 / 2.7 - 3.8 cm DOPPLER TR Peak Velocity 309.0 cm/s TR Peak Gradient 38.2 mmHg FINDINGS Left Ventricle Moderately increased left ventricular cavity size. Normal left ventricular wall thickness. Left ventricular ejection fraction is estimated at 15 %. Right Ventricle The right ventricle is normal in size and function. Right Atrium Moderately increased right atrial size. Left Atrium Moderately increased left atrial size. Mitral Valve Morphologically normal mitral valve. Mild-moderate mitral valve regurgitation. Aortic Valve Morphologically normal aortic valve without significant sclerosis or stenosis. There is no aortic regurgitation. Tricuspid Valve Morphologically normal tricuspid valve. [id number] tricuspid valve regurgitation. Tricuspid regurgitation velocities suggest a PAP of 48 mmHg. Pulmonic Valve Morphologically normal pulmonic valve. Mild pulmonary valve regurgitation. Pericardium Normal pericardium without effusion. Aorta Normal ascending aorta dimension. Tae Solares MD (Electronically Signed) Final Date: 15 Mar 2017 18:44
[2017-03-15] MEDS: METOPROLOL TARTRATE 50 MG TABLET PO SCH (20:58)
[2017-03-16] MEDS: ONDANSETRON 4 MG/2 ML VIAL IV PRN ×2 (00:29→23:52)
[2017-03-16 05:21] LABS: Basophils # 0.1 10*3/uL (0.0-0.2); Basophils % 0.7 % (0.0-0.8); Eosinophils # 0.1 10*3/uL (0.0-0.87); Eosinophils % 1.4 % (0.00-10.9); Hematocrit 39.9 VOL% (42.0-52.0); Hemoglobin 12.7 GM/DL (14.0-18.0); Immature Granulocytes % 0.4 %; Immature Granulocytes Absolute 0.04 #; Lymphocytes # 1.5 10*3/uL (1.4-4.0); Lymphocytes % 14.8 % (21.2-54.2); Mean Corpuscular HGB Conc 31.8 GM/DL (32-36); Mean Corpuscular Hemoglobin 28 PG (27-34); Mean Corpuscular Volume 88.1 FL (87-102); Mean Platelet Volume 9.6 FL (9.6-12.0); Monocytes # 1.1 10*3/uL (0.11-0.8); Monocytes % 10.8 % (1.7-12.7); Neutrophils # 7.2 10*3/uL (1.4-7.4); Neutrophils % 71.9 % (38.7-73.9); Platelet Count 333 T/CUMM (130-400); Red Blood Count 4.53 MC/CUMM (3.8-5.5); Red Cell Distribution Width 15.2 % (9.3-17.3); White Blood Count 10.1 T/CUMM (4-12)
[2017-03-16 05:56] LABS: Calcium 8.8 MG/DL (8.5-10.1); Potassium 4.4 MMOL/L (3.5-5.1)
[2017-03-16] MEDS: NICOTINE 21 MG/24 HR PATCH TRANSDERM PRN (06:42)
[2017-03-16] MEDS: CLORAZEPATE 3.75 MG TABLET PO PRN ×2 (06:44→17:44)
[2017-03-16] MEDS: FUROSEMIDE 40 MG/4 ML VIAL IV SCH ×2 (08:48→15:47)
[2017-03-16] MEDS: MAGNESIUM OXIDE 400 MG TABLET PO SCH ×2 (08:49→22:13)
[2017-03-16] MEDS: LISINOPRIL 5 MG TABLET PO SCH (08:49)
[2017-03-16] MEDS: METOPROLOL TARTRATE 50 MG TABLET PO SCH (08:49)
[2017-03-16] MEDS: APIXABAN 5 MG TABLET PO SCH ×2 (08:49→22:14)
[2017-03-16] MEDS: metOLazone 5 MG TABLET PO SCH (08:49)
[2017-03-16] MEDS: POTASSIUM CHLORIDE 20 MEQ TABLET PO SCH ×2 (08:49→22:15)
[2017-03-16] MEDS: POLYETHYLENE GLYCOL POWDER 17 GM PACK PO SCH (08:50)
[2017-03-16] MEDS: SPIRONOLACTONE 25 MG TABLET PO SCH ×2 (08:50→22:14)
[2017-03-16] MEDS ORDERED: POLYETHYLENE GLYCOL 3350/ELECTROLYTES 4,000 ML BOTTLE PO ONE (11:27)
--- NOTE | 2017-03-16 12:34 | Cardiology Progress Note ---
Whitney Herrera April RN, am scribing for, and in the presence of, Tae Solares MD 12:23. Assessment and Plan (1) Acute on chronic systolic heart failure Status: Acute Assessment and plan: Continue to try to diurese the patient. Concerned is noncompliant with fluid restrictions. Current Visit: Yes (2) Pulmonary embolus with infarction Status: Acute Assessment and plan: This is a previous chronic issue. Current Visit: Yes (3) Cardiomyopathy Status: Chronic Assessment and plan: Severe with ejection of 15%. Issue of dealing with his cardiomyopathy with his other social issues and will be difficult. The try to get records from the [place] facilities were all this started. Current Visit: Yes Qualifiers: Cardiomyopathy type: unspecified Qualified Code(s): I42.9 - Cardiomyopathy , unspecified (4) Multiple substance abuse Status: Chronic Assessment and plan: Disability issue for the patient. This also will be an issue in regard to his compliance. Current Visit: Yes (5) Non compliance w medication regimen Status: Chronic Assessment and plan: This going to be a chronic issue with the patient. Current Visit: Yes (6) Tachycardia Status: Acute Assessment and plan: This is sinus and on review of his outside records Tachycardia before. We will increase his beta srinivasan but with Louise cautious about not suppressing LV function. 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 Bernard seen resting in bed in no acute distress. He denies any chest pain , palpitations, or dizziness. Oxygen in use via nasal cannula. He does report having some shortness of breath, he states it feels like his stomach is pushing up and making it hard to breathe. Also complains of occasional abdominal discomfort. KUB done yesterday was consistent with constipation. He said he was given something for this last night with little results. His blood pressures been stable, this morning is 109/81. Telemetry monitoring currently shows sinus tachycardia with heart rate of 117. He was noted to be in the upper 120s last night, he denies any palpitations being able to tell when his heart rate is fast. His Lopressor was increased from 12.5 mg twice daily to 50 mg p.o. twice daily yesterday. Warfarin was changed to Eliquis yesterday. He continues to have pitting edema in his lower extremities, yesterday his p.o. Lasix was changed back to Lasix 40 IV twice daily. Labs are unremarkable. Echo done here yesterday with ejection fraction of 15%. As noted above. He should be noted that on arrival the room that he was sleeping resting comfortably flat. He really has no specific complaints. His I &O's are not adequate. He is not collecting his urine like she needs to. If accurate his weight is down low approximate 2 kg. He is now with the addition of metolazone orally was given a dose yesterday. Is not clear from his history whether he had actually had increased volume output last p.m. His biggest fixation is that on his bowel movements. As noted is echocardiogram ejection fraction 15% with dilated right and left atria, and only mildly increased right-sided pressures. Exam (Progress Note) - Constitutional Vitals: Period Temp Pulse Resp BP Sys/Gonzalez Pulse Ox Last 24 Hr 96.0 F-98.4 F 112-133 18-22 105-130/63-90 95-100 General appearance: normal weight, no acute distress - Head Head exam: Absent: abrasion, hematoma - Eye Eye exam: Absent: periorbital swelling, laceration to eyelids - Respiratory Respiratory exam: Present: clear to auscultation bilaterally, other (Oxygen via nasal cannula). Absent: accessory muscle use, chest wall tenderness - Cardiovascular Cardiovascular exam: Present: regular rate and rhythm, tachycardia - GI/Abdominal GI/Abdominal exam: Present: normal bowel sounds, tenderness, soft. Absent: distended - Extremities Exam Extremities exam: Present: edema (2+ bilateral lower extremities that extends to his thighs.) - Neurological Exam Neurological exam: Present: alert, oriented X3 - Psychiatric Psychiatric exam: Present: normal affect, normal mood - Skin Skin exam: Present: warm, dry Result/EKG - Labs CBC & BMP: 03/16/17 04:48 03/16/17 04:48 Lab Results: I have reviewed the past 24 hour labs Labs: Laboratory Results - last 24 hr 03/16/17 03/16/17 04:48 04:48 WBC 10.1 RBC 4.53 Hgb 12.7 L Hct 39.9 L MCV 88.1 MCH 28 MCHC 31.8 L RDW 15.2 Plt Count 333 MPV 9.6 Neut % (Auto) 71.9 Lymph % (Auto) 14.8 L Cherry % (Auto) 10.8 Eos % (Auto) 1.4 Baso % (Auto) 0.7 Neut # (Auto) 7.2 Lymph # (Auto) 1.5 Cherry # (Auto) 1.1 H Eos # (Auto) 0.1 Baso # (Auto) 0.1 Immature Gran % 0.4 Nucleated RBC % 0.0 Immature Gran # 0.04 Nucleated RBCs # 0.00 Sodium 136 Potassium 4.4 Chloride 97 L Carbon Dioxide 30 Anion Gap 13.4 BUN 16 Creatinine 1.30 GFR Calculation 92 BUN/Creatinine Ratio 12.00 Glucose 118 H Calculated Osmolality 273.0 Calcium 8.8 - Impressions Impressions: Telemetry sinus tachycardia. - EKG EKG results: interpreted by me EKG shows: tachycardia, sinus rhythm Quality Measures - VTE Contraindication to Pharmacological VTE Prophylaxis: Already on Theraputic Agent , No Prophylaxis Needed Contraindication to Mechanical VTE Prophylaxis: Current Diagnosis of DVT - Stroke Symptom Onset Unknown: No I, Tae Solares MD, personally performed the services described in this documentation, ascribed by Juanita Olson RN in my presence, and it is both accurate and complete 234 .
--- NOTE | 2017-03-16 16:01 | Hospitalist Progress Note ---
Assessment and Plan (1) Acute on chronic systolic heart failure Status: Acute Assessment and plan: Continue IV Lasix 40 mg IV twice daily with potassium supplementation, echo with EF 15%, dilated atrium bilateral, MR and TR Current Visit: Yes (2) Pulmonary embolus with infarction Status: Acute Assessment and plan: Cont Eliquis. Current Visit: Yes (3) Cardiomyopathy Status: Chronic Assessment and plan: EF of 15%. Current Visit: Yes Qualifiers: Qualified Code(s): I42.9 - Cardiomyopathy, unspecified (4) Multiple substance abuse Status: Chronic Assessment and plan: Patient's urine drug screen positive for amphetamines and opiates. Current Visit: Yes (5) Constipation Status: Acute Assessment and plan: inadequate response to mag citrate, nulytely Current Visit: Yes Hospitalist: Subjective Interval history: Patient says he has not had a good bowel movement. With his heart failure I do not like to use NuLYTELY but he did not respond to mag citrate. He stills feels very constipated. Dr. Solares and I have discussed his case. Patient is being cared for by a pants maker in [place]. Patient much improved compliance with medications in order to have any defibrillator placed. Patient's breathing is better today. Exam - Constitutional Vitals: Period Temp Pulse Resp BP Sys/Gonzalez Pulse Ox Last 24 Hr 96.0 F-98.4 F 107-133 18-22 103-130/63-90 95-100 Exam: Heart Rate-[RRR] Lungs-[clear] GI-[+bs soft, NT] Ext-[2+ pitting edema up to abdomen] Neuro [Motor 5/5], [alert and oriented times 3] psych [anxious mood and affect] General [no acute distress] Results - Labs CBC & BMP: 03/16/17 04:48 03/16/17 04:48 Lab Results: I have reviewed the past 24 hour labs Quality Measures - VTE Contraindication to Pharmacological VTE Prophylaxis: Already on Theraputic Agent , No Prophylaxis Needed Contraindication to Mechanical VTE Prophylaxis: Current Diagnosis of DVT - Stroke Symptom Onset Unknown: No
[2017-03-16] MEDS: METOPROLOL TARTRATE 100 MG TABLET PO SCH (22:12)
[2017-03-17] MEDS: CLORAZEPATE 3.75 MG TABLET PO PRN ×3 (00:02→23:13)
[2017-03-17] MEDS: ALUMINUM/MAGNES/SIMETH MAX STR 30 ML UDCUP PO PRN ×4 (00:09→21:36)
[2017-03-17 04:51] LABS: Basophils # 0.1 10*3/uL (0.0-0.2); Basophils % 0.4 % (0.0-0.8); Eosinophils # 0.1 10*3/uL (0.0-0.87); Eosinophils % 0.6 % (0.00-10.9); Hematocrit 42.6 VOL% (42.0-52.0); Hemoglobin 13.3 GM/DL (14.0-18.0); Immature Granulocytes % 0.4 %; Immature Granulocytes Absolute 0.05 #; Lymphocytes # 1.5 10*3/uL (1.4-4.0); Lymphocytes % 13.6 % (21.2-54.2); Mean Corpuscular HGB Conc 31.2 GM/DL (32-36); Mean Corpuscular Hemoglobin 28 PG (27-34); Mean Corpuscular Volume 88.4 FL (87-102); Mean Platelet Volume 9.9 FL (9.6-12.0); Monocytes # 0.8 10*3/uL (0.11-0.8); Neutrophils # 8.8 10*3/uL (1.4-7.4); Platelet Count 304 T/CUMM (130-400); Red Blood Count 4.82 MC/CUMM (3.8-5.5); Red Cell Distribution Width 15.3 % (9.3-17.3); White Blood Count 11.3 T/CUMM (4-12)
[2017-03-17 05:15] LABS: Calcium 8.4 MG/DL (8.5-10.1); Osmolality,Calculated 266.5 MOS/KG (273-304); Potassium 5.5 MMOL/L (3.5-5.1)
[2017-03-17] MEDS: FUROSEMIDE 40 MG/4 ML VIAL IV SCH (08:43)
[2017-03-17] MEDS: POLYETHYLENE GLYCOL POWDER 17 GM PACK PO SCH (08:43)
[2017-03-17] MEDS: metOLazone 5 MG TABLET PO SCH (08:44)
[2017-03-17] MEDS: LISINOPRIL 5 MG TABLET PO SCH (08:44)
[2017-03-17] MEDS: SPIRONOLACTONE 25 MG TABLET PO SCH (08:44)
[2017-03-17] MEDS: MAGNESIUM OXIDE 400 MG TABLET PO SCH ×2 (08:44→21:36)
[2017-03-17] MEDS: METOPROLOL TARTRATE 100 MG TABLET PO SCH ×2 (08:45→21:35)
[2017-03-17] MEDS: POTASSIUM CHLORIDE 20 MEQ TABLET PO SCH (08:45)
[2017-03-17] MEDS: APIXABAN 5 MG TABLET PO SCH ×2 (08:45→21:35)
[2017-03-17] MEDS: ACETAMINOPHEN 325 MG TABLET PO PRN ×2 (11:45→23:18)
[2017-03-17] MEDS: NICOTINE 21 MG/24 HR PATCH TRANSDERM PRN (11:45)
--- NOTE | 2017-03-17 15:53 | Hospitalist Progress Note ---
Assessment and Plan (1) Acute on chronic systolic heart failure Status: Acute Assessment and plan: change lasix 100 mg po bid with zaroxlyn, spironolactone held, cont metoprolol Current Visit: Yes (2) Pulmonary embolus with infarction Status: Acute Assessment and plan: Cont Eliquis. Current Visit: Yes (3) Cardiomyopathy Status: Chronic Assessment and plan: EF of 15%. Current Visit: Yes Qualifiers: Cardiomyopathy type: unspecified Qualified Code(s): I42.9 - Cardiomyopathy , unspecified (4) Multiple substance abuse Status: Chronic Assessment and plan: Patient's urine drug screen positive for amphetamines and opiates. Current Visit: Yes (5) Constipation Status: Acute Assessment and plan: resolved. Current Visit: Yes (6) Cellulitis Status: Acute Assessment and plan: keflex po bid Current Visit: Yes Hospitalist: Subjective Interval history: potassium higher today, potassium supplement held. Has two different places on my arm with infections from IV sites. Having bowel movements but wants another KUB and I told him no Exam - Constitutional Vitals: Period Temp Pulse Resp BP Sys/Gonzalez Pulse Ox Last 24 Hr 96.5 F-97.4 F 91-105 18-22 91-101/64-73 93-100 Exam: Heart Rate-[RRR] Lungs-[clear] GI-[+bs soft, NT] Ext-[2+ pitting edema up to abdomen] Neuro [Motor 5/5], [alert and oriented times 3] psych [anxious mood and affect] General [no acute distress] Results - Labs CBC & BMP: 03/17/17 04:22 03/17/17 04:22 Lab Results: I have reviewed the past 24 hour labs - Diagnostic Findings Procedure: Ultrasound: report reviewed by me (echo ef 15%) Quality Measures - VTE Contraindication to Pharmacological VTE Prophylaxis: Already on Theraputic Agent , No Prophylaxis Needed Contraindication to Mechanical VTE Prophylaxis: Current Diagnosis of DVT - Stroke Symptom Onset Unknown: No
[2017-03-17] MEDS ORDERED: FUROSEMIDE 80 MG TABLET PO SCH ×2 (16:00→16:48)
[2017-03-17] MEDS: cephALEXin 500 MG CAPSULE PO SCH (18:00)
--- NOTE | 2017-03-17 19:28 | Cardiology Progress Note ---
I, Juanita Olson RN, am scribing for, and in the presence of, Tae Solares MD 19:25. Assessment and Plan (1) Acute on chronic systolic heart failure Status: Acute Assessment and plan: Overall it appears that his ejection fraction has deteriorated. We may consider dobutamine tomorrow for a time. Current Visit: Yes (2) Pulmonary embolus with infarction Status: Acute Assessment and plan: He is on chronic anticoagulation for this. Current Visit: Yes (3) Cardiomyopathy Status: Chronic Assessment and plan: This is idiopathic. His progress since there were 2015. Current Visit: Yes Qualifiers: Cardiomyopathy type: unspecified Qualified Code(s): I42.9 - Cardiomyopathy , unspecified (4) Multiple substance abuse Status: Chronic Assessment and plan: He must prove that he can stay off of illicit drugs. Question can he go to a treatment center. Current Visit: Yes (5) Non compliance w medication regimen Status: Chronic Assessment and plan: This will be a long-term problem for the patient. Current Visit: Yes Cardiology - PN: Subj Interval history: Nurse Supervisor: At [facility] Mr. Hart is seen sitting up on side of bed in no acute distress. He denies shortness of breath at present, tells me he was short of breath earlier on several occasions. He thinks this was related to panic attacks. He denies any chest pain, states he has had some abdominal discomfort earlier today. 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 Last blood pressure was 97/70. Potassium is elevated at 5.5. Creatinine has increased to 1.6. Have reviewed his outside records from [place] from there were 2015 and his ejection fraction around 40% that time. I am concerned that noting his bedside he has something like a coffee cup drinking as well as a large amount of water. I discussed with he and his mother that he needs to restrict his fluid intake. Again asked him the same questions about any type of defibrillator or biventricular pacemaker but I again reiterated that he must be a candidate in that he demonstrates he he will take his medications and he remains off illicit drugs. I favor going to have issues though with his poor cardiac output. Possibly tomorrow try dobutamine if needed. I am going up on his Zaroxolyn. Exam (Progress Note) - Constitutional Vitals: Period Temp Pulse Resp BP Sys/Gonzalez Pulse Ox Last 24 Hr 96.5 F-97.4 F 91-105 18-22 91-101/64-73 93-100 General appearance: no acute distress - Head Head exam: Absent: abrasion, hematoma - Eye Eye exam: Absent: periorbital swelling, laceration to eyelids - Respiratory Respiratory exam: Present: clear to auscultation bilaterally, other (Oxygen in use via nasal cannula). Absent: accessory muscle use, chest wall tenderness - Cardiovascular Cardiovascular exam: Present: regular rate and rhythm - GI/Abdominal GI/Abdominal exam: Present: normal bowel sounds, soft. Absent: distended, tenderness - Extremities Exam Extremities exam: Present: edema (2+ to 3+ lower bilateral extremities involving his thighs) - Neurological Exam Neurological exam: Present: alert, oriented X3 - Psychiatric Psychiatric exam: Present: normal affect, normal mood - Skin Skin exam: Present: warm, dry Result/EKG - Labs CBC & BMP: 03/17/17 04:22 03/17/17 04:22 Lab Results: I have reviewed the past 24 hour labs Labs: Laboratory Results - last 24 hr 03/17/17 03/17/17 04:22 04:22 WBC 11.3 RBC 4.82 Hgb 13.3 L Hct 42.6 MCV 88.4 MCH 28 MCHC 31.2 L RDW 15.3 Plt Count 304 MPV 9.9 Neut % (Auto) 78.0 H Lymph % (Auto) 13.6 L Polk % (Auto) 7.0 Eos % (Auto) 0.6 Baso % (Auto) 0.4 Neut # (Auto) 8.8 H Lymph # (Auto) 1.5 [place]k # (Auto) 0.8 Eos # (Auto) 0.1 Baso # (Auto) 0.1 Immature Gran % 0.4 Nucleated RBC % 0.0 Immature Gran # 0.05 Nucleated RBCs # 0.00 Sodium 132 L Potassium 5.5 H Chloride 96 L Carbon Dioxide 26 Anion Gap 15.5 H BUN 21 H Creatinine 1.60 H GFR Calculation 71 BUN/Creatinine Ratio 13.00 Glucose 105 Calculated Osmolality 266.5 L Calcium 8.4 L - Impressions Impressions: Telemetry sinus rhythm that is actually slowed her that it was yesterday. - EKG EKG results: interpreted by me EKG shows: sinus rhythm Quality Measures - VTE Contraindication to Pharmacological VTE Prophylaxis: Already on Theraputic Agent , No Prophylaxis Needed Contraindication to Mechanical VTE Prophylaxis: Current Diagnosis of DVT - Stroke Symptom Onset Unknown: No I, Tae Solares MD, personally performed the services described in this documentation, ascribed by Juanita Olson RN in my presence, and it is both accurate and complete 927 .
[2017-03-18 06:13] LABS: Basophils # 0.1 10*3/uL (0.0-0.2); Basophils % 0.6 % (0.0-0.8); Eosinophils # 0.1 10*3/uL (0.0-0.87); Eosinophils % 0.7 % (0.00-10.9); Hematocrit 42.1 VOL% (42.0-52.0); Hemoglobin 13.6 GM/DL (14.0-18.0); Immature Granulocytes % 0.3 %; Immature Granulocytes Absolute 0.04 #; Lymphocytes # 2.1 10*3/uL (1.4-4.0); Lymphocytes % 17.5 % (21.2-54.2); Mean Corpuscular HGB Conc 32.3 GM/DL (32-36); Mean Corpuscular Hemoglobin 28 PG (27-34); Mean Corpuscular Volume 85.4 FL (87-102); Mean Platelet Volume 9.4 FL (9.6-12.0); Monocytes # 1.2 10*3/uL (0.11-0.8); Monocytes % 9.9 % (1.7-12.7); Neutrophils # 8.3 10*3/uL (1.4-7.4); Platelet Count 360 T/CUMM (130-400); Red Blood Count 4.93 MC/CUMM (3.8-5.5); White Blood Count 11.7 T/CUMM (4-12)
[2017-03-18 06:44] LABS: Calcium 8.7 MG/DL (8.5-10.1); Magnesium 2.4 MG/DL (1.8-2.4); Osmolality,Calculated 262.2 MOS/KG (273-304); Potassium 5.2 MMOL/L (3.5-5.1)
[2017-03-18] MEDS ORDERED: metOLazone 5 MG TABLET PO SCH (07:30)
[2017-03-18] MEDS: NICOTINE 21 MG/24 HR PATCH TRANSDERM PRN (09:07)
[2017-03-18] MEDS: POLYETHYLENE GLYCOL POWDER 17 GM PACK PO SCH (09:07)
[2017-03-18] MEDS: APIXABAN 5 MG TABLET PO SCH (09:08)
[2017-03-18] MEDS: MAGNESIUM OXIDE 400 MG TABLET PO SCH (09:08)
[2017-03-18] MEDS: CLORAZEPATE 3.75 MG TABLET PO PRN (09:08)
[2017-03-18] MEDS: METOPROLOL TARTRATE 100 MG TABLET PO SCH (09:08)
[2017-03-18] MEDS: cephALEXin 500 MG CAPSULE PO SCH (09:08)
--- NOTE | 2017-03-18 10:49 | Discharge Summary ---
Hospital Course - Hospital Course Hospital Course: 36-year-old male with a history of polysubstance abuse including amphetamines presents with shortness of breath. Patient has had increasing lower extremity edema spreading up to his scrotum and abdomen. He has been severely short of breath. He was diagnosed with pulmonary embolism but was noncompliant with his Coumadin at another hospital. We have started him on Eliquis. Echocardiogram showed an EF of only 15%. Cardiology Dr. Solares was consulted. He was started on metoprolol and IV Lasix. His BNP on admission was over 1100. Patient normally sees a assurance sourcing manager in [place] called Dr. Contreras and already has an appointment with him on the . Patient will have to be compliant with his medications as he will need a defibrillator soon. He will need to remain on Eliquis for 6 months. We have applied for financial assistance to help him with this Eliquis. With aggressive diuresis his BUN and creatinine have worsened. I would not keep him on an MAGGY inhibitor at this time as I think it will worsen his kidney status and elevate his potassium. His potassium remains elevated and he does not need supplementation. I am concerned the patient will soon need dialysis due to his worsening cardiac function. His urine drug screen was positive for opiates and amphetamines on admission. He would like to get some help from [facility]. Patient is noncompliant with his fluid restriction and diet. We will discharge him on 80 of Lasix twice a day and continue him on metoprolol. Patient has problems with chronic constipation and anxiety. We have had him on Tranxene here and we will wean him off. His constipation improved with laxatives and would recommend daily MiraLAX. Patient had some mild cellulitis where his IVs were in both arms. He will finish 5 days of Keflex for these sites. Follow with [facility], cardiology and [place]. - Time spent with patient Time with patient DS: Greater than 30 minutes (60 min) Diagnosis - Discharge Diagnosis (1) Acute on chronic systolic heart failure Status: Acute (2) Pulmonary embolus with infarction Status: Acute (3) Cardiomyopathy Status: Chronic (4) Multiple substance abuse Status: Chronic (5) Constipation Status: Acute (6) Cellulitis Status: Acute Discharge Plan - Discharge Data Disposition: Disch To Home/Self Care Condition at Discharge: Stable Discharge Diet: heart healthy Activity: resume usual activities as tolerated Hygiene: no restrictions Weight Bearing at Discharge: full weight bearing - Discharge Medications New Clorazepate [Tranxene] 3.75 mg PO BID #30 tablet Furosemide Tab [Lasix Tab] 80 mg PO BID DIURETIC #60 tablet Metoprolol Tartrate Tab [Lopressor Tab] 100 mg PO BID #60 tablet Polyethylene Glycol Powder [Miralax] 17 gm PO DAILY cephALEXin [Keflex] 500 mg PO BID #10 capsule metOLazone [Zaroxolyn] 5 mg PO DAILY@0730 #30 tablet Apixaban [Eliquis] 5 mg PO BID #64 tablet Discontinued levoFLOXacin [Levofloxacin Tab] 750 mg PO DAILY Potassium Chloride [Klor-Con M20] 20 meq PO DAILY Metoprolol Tartrate 50 mg PO BID Furosemide 40 mg PO DAILY - Follow Up or Referral Follow Up: [facility] [Provider Group] - [address] Diane [Other] - 03/29/17 dr [facility] [Other] - 1 Week - Forms/Instructions Exam - Constitutional Vitals: Period Temp Pulse Resp BP Sys/Gonzalez Pulse Ox Last 24 Hr 97.1 F-97.9 F 89-102 18-26 93-109/62-75 94-99 General appearance: no acute distress, over weight - Respiratory Respiratory exam: Present: clear to auscultation bilaterally. Absent: rhonchi, wheezes - Cardiovascular Cardiovascular exam: Present: regular rate and rhythm. Absent: systolic murmur - Extremities Exam Extremities exam: Present: normal capillary refill, edema - Neurological Exam Neurological exam: Present: alert, oriented X3 - Psychiatric Psychiatric exam: Present: agitated Discharge Results Procedures and tests throughout hospitalization: Pending Orders 03/19/17 04:00 BMP w/ Mg [Basic Metabolic Panel w/Mg] IN AM CBC [Comp Blood Count Auto Diff] IN AM Labs on day of discharge: Labs from last 24 hours 03/18/17 03/18/17 05:56 05:56 WBC 11.7 RBC 4.93 Hgb 13.6 L Hct 42.1 MCV 85.4 L MCH 28 MCHC 32.3 RDW 15.0 Plt Count 360 MPV 9.4 L Neut % (Auto) 71.0 Lymph % (Auto) 17.5 L Jasper % (Auto) 9.9 Eos % (Auto) 0.7 Baso % (Auto) 0.6 Neut # (Auto) 8.3 H Lymph # (Auto) 2.1 Jasper # (Auto) 1.2 H Eos # (Auto) 0.1 Baso # (Auto) 0.1 Immature Gran % 0.3 Nucleated RBC % 0.0 Immature Gran # 0.04 Nucleated RBCs # 0.00 Sodium 127 L Potassium 5.2 H Chloride 90 L Carbon Dioxide 27 Anion Gap 15.2 H BUN 31 H Creatinine 2.00 H GFR Calculation 55 BUN/Creatinine Ratio 15.00 Glucose 121 H Calculated Osmolality 262.2 L Calcium 8.7 Magnesium 2.4 DS: Provider Date of admission: 03/13/17 06:49 Primary care physician: . No PCP Attending physician on admission: Tae Elise MD Consults: 03/13/17 08:27 Consult to Pharmacy [CONS] Routine Reason for Pharmacy Consult: Adjust Meds Renal Funct 03/13/17 14:15 Consult to Physician [CONS] Routine Comment: Consulting Provider: Hilda Canada Person Notified: DR CANADA Date Notified: 03/13/17 Time Notified: 14:32 Discharging clinician: Florinda Ny MD
[2017-03-18 11:50] VITALS: BP 98/68
--- NOTE | 2017-03-18 13:11 | Physician Query Form ---
CLICK EDIT DOCUMENT TO SELECT QUERY ANSWER --> OK --> SIGN Jackelyn Taveras RN, CCDS Certified Clinical Business Management Intern W) [phone] (f) [phone] [email or web address]: Make your selection(s) from the choices in EACH section by typing an "x" and enter comments in the comment section. Please use your independent medical judgment in providing your response. This request does not imply that any particular answer is desired or expected. CLINICAL INDICATORS: (Providers should not edit this section) The medical record indicates that the patient was admitted with CHF, Creatinine of 1.30 on the 6th/ Creatinine of 2.00 on the 11th, GFR of 92 on admission that is 55 on the 11th, per discharge summary: "I am concerned the patient will soon need dialysis due to his worsening cardiac function" and the patient is on Lasix. Clarify which of the following most accurately represents the patient's renal status: ( ) Acute kidney injury (non-traumatic) ( ) Acute renal failure (x ) Acute renal failure with underlying Chronic Kidney Disease (CKD) - please provide stage below III ( ) Acute renal failure with pathological renal lesion ( ) Acute renal failure with necrosis ( ) tubular ( ) medullary ( ) cortical ( ) CKD - please provide stage below ( ) End Stage Renal Disease ( ) Acute interstitial nephritis ( ) Hepatorenal syndrome ( ) Other, please specify: ( ) Clinically unable to determine Chronic Kidney Disease Stages Source: National Kidney Disease Foundation ( ) Stage I (eGFR > or = 90) ( ) Stage II (eGFR 60 - 89) (x ) Stage III (eGFR 30 - 59) ( ) Stage IV (eGFR 15 - 29) ( ) Stage V (eGFR < 15 or dialysis) COMMENTS: Use of terms such as suspected, likely, or probable (associated with a specific diagnosis that is being evaluated, monitored, or treated as if it exists) are acceptable and can be restated in the discharge summary if not ruled out. MTDD
== END 2017-03-18 12:55 | disposition home or self-care (01) | DRG 291 ==
LOC: N.ED 04:08 → SUATTDRO 06:49 → N.EDINP 06:49 → N.TELEN 07:33
PROVIDERS: ADMIT Student in an Organized Health Care Education/Training Program; ATTEND Internal Medicine

== ENCOUNTER 2017-10-06 15:16 | Inpatient (IN) ==
[2017-10-06 16:15] LABS: Basophils % 0.4 % (0.0-0.8); Eosinophils % 0.4 % (0.00-10.9); Hematocrit 41.2 VOL% (42.0-52.0); Hemoglobin 13.7 GM/DL (14.0-18.0); Immature Granulocytes % 0.1 %; Immature Granulocytes Absolute 0.01 #; Lymphocytes # 1.8 10*3/uL (1.4-4.0); Mean Corpuscular HGB Conc 33.3 GM/DL (32-36); Mean Corpuscular Hemoglobin 28 PG (27-34); Mean Corpuscular Volume 82.9 FL (87-102); Mean Platelet Volume 10.5 FL (9.6-12.0); Monocytes % 12.7 % (1.7-12.7); Neutrophils # 5.1 10*3/uL (1.4-7.4); Neutrophils % 63.4 % (38.7-73.9); Platelet Count 203 T/CUMM (130-400); Red Blood Count 4.97 MC/CUMM (3.8-5.5); Red Cell Distribution Width 17.6 % (9.3-17.3)
[2017-10-06] MEDS ORDERED: FUROSEMIDE 100 MG/10 ML VIAL IV STA (16:21)
[2017-10-06] MEDS ORDERED: FUROSEMIDE 40 MG/4 ML VIAL ONE (16:22)
[2017-10-06] MEDS ORDERED: FUROSEMIDE 40 MG/4 ML VIAL IV STA (16:23)
[2017-10-06 16:25] LABS: INR 2.6
[2017-10-06 16:29] LABS: PT Patient Result 26.4 SECS
[2017-10-06] MEDS ORDERED: DIGOXIN 0.5 MG/2 ML AMP IV STA (16:29)
[2017-10-06] MEDS ORDERED: DIGOXIN 0.5 MG/2 ML AMP ONE (16:35)
[2017-10-06 16:39] LABS: Albumin 3.9 G/DL (3.4-5.0); Bilirubin,Total 6.4 MG/DL (0.2-1.0); Calcium 8.6 MG/DL (8.5-10.1); Osmolality,Calculated 265.4 MOS/KG (273-304); Potassium 3.8 MMOL/L (3.5-5.1); Total Protein 6.5 G/DL (6.4-8.3)
[2017-10-06] MEDS ORDERED: MAGNESIUM SULF RIDER 2 GM in PREMIX 1 EACH IV PRN (17:33)
[2017-10-06] MEDS ORDERED: ONDANSETRON 4 MG/2 ML VIAL IV PRN (17:33)
[2017-10-06] MEDS ORDERED: MAGNESIUM SULF RIDER 4 GM in PREMIX 1 EACH IV PRN (17:33)
[2017-10-06 18:53] LABS: Apearance,Urine Slightly Hazy (Clear); Bacteria,Urine Occasional /HPF (Few); Bilirubin,Urine Negative (Negative); Blood, Urine Small mg/dL (Negative); Glucose,Urine (UA) Negative (Negative); Hyaline Casts,Urine 13 /LPF (0-3); Ketones,Urine Negative (Negative); Mucus,Urine Occasional /LPF (Occasional); Nitrite,Urine Negative (Negative); Protein,Urine 30 MG/DL; RBC,Urine 2 /HPF (0-4); Squamous Epithelial Cell,Urine Occasional /HPF (0-10); Urine Color Amber (Yellow); Urine Specific Gravity 1.013 (1.001-1.035); Urine Urobilinogen < 2.0 EU/DL (0.2-1.0); WBC,Urine 3 /HPF (0-6)
[2017-10-06 18:58] LABS: Barbiturates Screen,Urine Negative (Negative); Benzodiazepines Screen,Urine Negative (Negative); Cannabinoid Screen,Urine Negative (Negative); Opiate Screen,Urine Negative (Negative); Phencyclidine Screen,Urine Negative (Negative)
[2017-10-06 19:04] LABS: Hepatitis A Ab IgM Quant 0.02 Index; Hepatitis A Ab IgM Result Negative (Negative); Hepatitis B Core IgM Quant 0.13 Index; Hepatitis B Core IgM Result Negative (Negative); Hepatitis B Surface Ag Quant < 0.10 Index; Hepatitis B Surface Ag Result Negative (Negative); Hepatitis C Virus Ab Quant 0.02 Index; Hepatitis C Virus Ab Result Negative (Negative)
[2017-10-06] MEDS: ISOSORBIDE DINITRATE 20 MG TABLET PO SCH (22:54)
[2017-10-06] MEDS: hydrALAZINE 10 MG TABLET PO SCH (22:54)
[2017-10-06] MEDS: FUROSEMIDE 40 MG/4 ML VIAL IV SCH (22:54)
[2017-10-06] MEDS: CARVEDILOL 3.125 MG TABLET PO SCH (22:56)
[2017-10-06] MEDS: DIGOXIN 0.125 MG TABLET PO SCH (22:56)
[2017-10-06] MEDS: APIXABAN 5 MG TABLET PO SCH (22:57)
[2017-10-07] MEDS: FUROSEMIDE 40 MG/4 ML VIAL IV SCH ×4 (03:51→22:37)
[2017-10-07 05:42] LABS: Basophils # 0.1 10*3/uL (0.0-0.2); Basophils % 0.7 % (0.0-0.8); Eosinophils # 0.1 10*3/uL (0.0-0.87); Eosinophils % 0.8 % (0.00-10.9); Hematocrit 38.1 VOL% (42.0-52.0); Hemoglobin 12.8 GM/DL (14.0-18.0); Immature Granulocytes % 0.4 %; Immature Granulocytes Absolute 0.04 #; Lymphocytes # 1.6 10*3/uL (1.4-4.0); Mean Corpuscular HGB Conc 33.6 GM/DL (32-36); Mean Corpuscular Hemoglobin 27 PG (27-34); Mean Corpuscular Volume 81.4 FL (87-102); Mean Platelet Volume 10.5 FL (9.6-12.0); Monocytes # 1.5 10*3/uL (0.11-0.8); Monocytes % 15.8 % (1.7-12.7); Neutrophils % 65.3 % (38.7-73.9); Platelet Count 183 T/CUMM (130-400); Red Blood Count 4.68 MC/CUMM (3.8-5.5); Red Cell Distribution Width 17.1 % (9.3-17.3); White Blood Count 9.2 T/CUMM (4-12)
[2017-10-07 06:28] LABS: Albumin 3.5 G/DL (3.4-5.0); Bilirubin,Total 6.1 MG/DL (0.2-1.0); Calcium 8.5 MG/DL (8.5-10.1); Magnesium 1.9 MG/DL (1.8-2.4); Osmolality,Calculated 267.1 MOS/KG (273-304); Potassium 3.5 MMOL/L (3.5-5.1); Risk Ratio 4.63; Total Protein 5.8 G/DL (6.4-8.3); VLDL CHOLESTEROL 15.2 MG/DL
[2017-10-07 06:40] LABS: Eosinophils 1 % (0-10); Lymphocytes 18 % (20-55); Myelocytes 2 %; Platelet Estimate Normal; Segmented Neutrophils 73 % (50-85); Total Cells Counted 100
[2017-10-07] MEDS: hydrALAZINE 10 MG TABLET PO SCH ×3 (11:24→22:37)
[2017-10-07] MEDS: ISOSORBIDE DINITRATE 20 MG TABLET PO SCH ×3 (11:25→22:36)
[2017-10-07] MEDS: CARVEDILOL 3.125 MG TABLET PO SCH ×2 (11:25→22:37)
[2017-10-07] MEDS: APIXABAN 5 MG TABLET PO SCH ×2 (11:25→22:37)
[2017-10-07] MEDS: SPIRONOLACTONE 25 MG TABLET PO SCH (11:26)
[2017-10-07] MEDS: metOLazone 5 MG TABLET PO SCH (11:26)
[2017-10-07] MEDS: DIGOXIN 0.125 MG TABLET PO SCH (22:38)
[2017-10-08] MEDS: FUROSEMIDE 40 MG/4 ML VIAL IV SCH ×4 (04:46→23:24)
[2017-10-08 05:38] LABS: Basophils % 0.2 % (0.0-0.8); Eosinophils # 0.1 10*3/uL (0.0-0.87); Eosinophils % 1.5 % (0.00-10.9); Hematocrit 37.7 VOL% (42.0-52.0); Hemoglobin 12.8 GM/DL (14.0-18.0); Immature Granulocytes % 0.4 %; Immature Granulocytes Absolute 0.02 #; Lymphocytes # 1.1 10*3/uL (1.4-4.0); Lymphocytes % 20.5 % (21.2-54.2); Mean Corpuscular Hemoglobin 27 PG (27-34); Mean Corpuscular Volume 80.2 FL (87-102); Mean Platelet Volume 10.2 FL (9.6-12.0); Monocytes % 17.6 % (1.7-12.7); Neutrophils # 3.3 10*3/uL (1.4-7.4); Neutrophils % 59.8 % (38.7-73.9); Platelet Count 169 T/CUMM (130-400); Red Cell Distribution Width 16.9 % (9.3-17.3); White Blood Count 5.5 T/CUMM (4-12)
[2017-10-08 06:16] LABS: Calcium 8.2 MG/DL (8.5-10.1); Magnesium 1.6 MG/DL (1.8-2.4); Osmolality,Calculated 267.1 MOS/KG (273-304)
[2017-10-08 06:32] LABS: Potassium 2.5 MMOL/L (3.5-5.1)
[2017-10-08 06:51] LABS: Hypochromasia 1+; Macrocytosis 1+; Target Cells Slight
[2017-10-08] MEDS: POTASSIUM CHLORIDE 20 MEQ TABLET PO PRN ×6 (06:55→19:30)
[2017-10-08] MEDS: hydrALAZINE 10 MG TABLET PO SCH ×3 (09:06→21:45)
[2017-10-08] MEDS: CARVEDILOL 3.125 MG TABLET PO SCH ×2 (09:06→21:47)
[2017-10-08] MEDS: APIXABAN 5 MG TABLET PO SCH ×2 (09:06→21:46)
[2017-10-08] MEDS: metOLazone 5 MG TABLET PO SCH (09:07)
[2017-10-08] MEDS: SPIRONOLACTONE 25 MG TABLET PO SCH (09:07)
[2017-10-08] MEDS: ISOSORBIDE DINITRATE 20 MG TABLET PO SCH ×3 (09:07→21:45)
[2017-10-08] MEDS ORDERED: POTASSIUM CHLORIDE 20 MEQ TABLET PO SCH (10:00)
[2017-10-08] MEDS: POTASSIUM CHLORIDE 20 MEQ TABLET PO SCH ×2 (15:34→21:45)
[2017-10-08] MEDS ORDERED: traMADol 50 MG TABLET PO ONE (21:00)
[2017-10-08] MEDS: DIGOXIN 0.125 MG TABLET PO SCH (21:49)
[2017-10-08] MEDS: MAGNESIUM CHLORIDE 64 MG TABLET PO SCH (21:49)
[2017-10-09 03:58] LABS: Basophils % 0.3 % (0.0-0.8); Eosinophils # 0.1 10*3/uL (0.0-0.87); Eosinophils % 1.3 % (0.00-10.9); Hematocrit 42.6 VOL% (42.0-52.0); Hemoglobin 14.5 GM/DL (14.0-18.0); Immature Granulocytes % 0.6 %; Immature Granulocytes Absolute 0.04 #; Lymphocytes # 1.3 10*3/uL (1.4-4.0); Lymphocytes % 19.9 % (21.2-54.2); Mean Corpuscular Hemoglobin 28 PG (27-34); Mean Corpuscular Volume 81.3 FL (87-102); Mean Platelet Volume 10.1 FL (9.6-12.0); Monocytes % 14.7 % (1.7-12.7); Neutrophils # 4.2 10*3/uL (1.4-7.4); Neutrophils % 63.2 % (38.7-73.9); Platelet Count 206 T/CUMM (130-400); Red Blood Count 5.24 MC/CUMM (3.8-5.5); Red Cell Distribution Width 17.2 % (9.3-17.3); White Blood Count 6.7 T/CUMM (4-12)
[2017-10-09] MEDS: FUROSEMIDE 40 MG/4 ML VIAL IV SCH ×4 (04:43→21:10)
[2017-10-09 04:52] LABS: Albumin 3.7 G/DL (3.4-5.0); Bilirubin,Direct 2.3 MG/DL (0.0-0.20); Bilirubin,Indirect 2.1 MG/DL (0.0-1.0); Bilirubin,Total 4.4 MG/DL (0.2-1.0); Total Protein 6.8 G/DL (6.4-8.3)
[2017-10-09 06:23] LABS: Calcium 8.5 MG/DL (8.5-10.1); Magnesium 1.9 MG/DL (1.8-2.4); Osmolality,Calculated 260.5 MOS/KG (273-304); Potassium 2.8 MMOL/L (3.5-5.1)
[2017-10-09] MEDS: POTASSIUM CHLORIDE 20 MEQ TABLET PO PRN ×3 (07:59→14:16)
[2017-10-09] MEDS: metOLazone 5 MG TABLET PO SCH (09:06)
[2017-10-09] MEDS: MAGNESIUM CHLORIDE 64 MG TABLET PO SCH ×2 (09:06→20:40)
[2017-10-09] MEDS: CARVEDILOL 3.125 MG TABLET PO SCH ×2 (09:06→20:43)
[2017-10-09] MEDS: SPIRONOLACTONE 25 MG TABLET PO SCH (09:06)
[2017-10-09] MEDS: APIXABAN 5 MG TABLET PO SCH ×2 (09:06→20:41)
[2017-10-09] MEDS: hydrALAZINE 10 MG TABLET PO SCH ×3 (09:06→20:40)
[2017-10-09] MEDS: ISOSORBIDE DINITRATE 20 MG TABLET PO SCH ×3 (09:06→20:43)
[2017-10-09] MEDS: POTASSIUM CHLORIDE 20 MEQ TABLET PO SCH ×2 (10:02→20:43)
[2017-10-09] MEDS: DIGOXIN 0.125 MG TABLET PO SCH (20:41)
[2017-10-10] MEDS: FUROSEMIDE 40 MG/4 ML VIAL IV SCH ×4 (03:55→21:46)
[2017-10-10 05:02] LABS: Basophils % 0.6 % (0.0-0.8); Eosinophils # 0.1 10*3/uL (0.0-0.87); Eosinophils % 1.5 % (0.00-10.9); Hematocrit 45.7 VOL% (42.0-52.0); Hemoglobin 15.7 GM/DL (14.0-18.0); Immature Granulocytes % 0.2 %; Immature Granulocytes Absolute 0.01 #; Lymphocytes # 1.3 10*3/uL (1.4-4.0); Lymphocytes % 20.5 % (21.2-54.2); Mean Corpuscular HGB Conc 34.4 GM/DL (32-36); Mean Corpuscular Hemoglobin 27 PG (27-34); Mean Corpuscular Volume 79.9 FL (87-102); Mean Platelet Volume 10.6 FL (9.6-12.0); Monocytes # 1.3 10*3/uL (0.11-0.8); Monocytes % 20.2 % (1.7-12.7); Neutrophils # 3.7 10*3/uL (1.4-7.4); Platelet Count 219 T/CUMM (130-400); Red Blood Count 5.72 MC/CUMM (3.8-5.5); Red Cell Distribution Width 17.8 % (9.3-17.3); White Blood Count 6.5 T/CUMM (4-12)
[2017-10-10 05:19] LABS: Calcium 9.3 MG/DL (8.5-10.1); Magnesium 1.9 MG/DL (1.8-2.4); Osmolality,Calculated 258.5 MOS/KG (273-304); Potassium 3.3 MMOL/L (3.5-5.1)
[2017-10-10 05:39] LABS: Eosinophils 4 % (0-10); Lymphocytes 19 % (20-55); Platelet Estimate Normal; Segmented Neutrophils 60 % (50-85); Total Cells Counted 100
[2017-10-10 05:40] LABS: Anisocytosis 1+; Macrocytosis Slight; Microcytosis 1+; Ovalocytes 1+; Target Cells 1+
[2017-10-10] MEDS: POTASSIUM CHLORIDE 20 MEQ TABLET PO PRN ×2 (07:30→11:39)
[2017-10-10] MEDS: CARVEDILOL 3.125 MG TABLET PO SCH (09:18)
[2017-10-10] MEDS: hydrALAZINE 10 MG TABLET PO SCH ×3 (09:18→21:44)
[2017-10-10] MEDS: MAGNESIUM CHLORIDE 64 MG TABLET PO SCH ×2 (09:18→21:46)
[2017-10-10] MEDS: metOLazone 5 MG TABLET PO SCH (09:19)
[2017-10-10] MEDS: SPIRONOLACTONE 25 MG TABLET PO SCH (09:19)
[2017-10-10] MEDS: ISOSORBIDE DINITRATE 20 MG TABLET PO SCH ×3 (09:19→21:45)
[2017-10-10] MEDS: POTASSIUM CHLORIDE 20 MEQ TABLET PO SCH ×3 (09:19→21:45)
[2017-10-10] MEDS: APIXABAN 5 MG TABLET PO SCH ×2 (09:19→21:45)
[2017-10-10] MEDS: DIGOXIN 0.125 MG TABLET PO SCH (21:45)
[2017-10-10] MEDS: CARVEDILOL 6.25 MG TABLET PO SCH (21:45)
[2017-10-11] MEDS: FUROSEMIDE 40 MG/4 ML VIAL IV SCH ×2 (03:57→10:59)
[2017-10-11 05:22] LABS: Basophils # 0.1 10*3/uL (0.0-0.2); Eosinophils # 0.2 10*3/uL (0.0-0.87); Eosinophils % 1.8 % (0.00-10.9); Hematocrit 46.7 VOL% (42.0-52.0); Immature Granulocytes % 0.2 %; Immature Granulocytes Absolute 0.02 #; Lymphocytes # 2.4 10*3/uL (1.4-4.0); Lymphocytes % 29.3 % (21.2-54.2); Mean Corpuscular HGB Conc 34.3 GM/DL (32-36); Mean Corpuscular Hemoglobin 27 PG (27-34); Mean Corpuscular Volume 79.4 FL (87-102); Mean Platelet Volume 10.1 FL (9.6-12.0); Monocytes # 1.6 10*3/uL (0.11-0.8); Neutrophils # 3.9 10*3/uL (1.4-7.4); Neutrophils % 47.7 % (38.7-73.9); Platelet Count 221 T/CUMM (130-400); Red Blood Count 5.88 MC/CUMM (3.8-5.5); Red Cell Distribution Width 17.9 % (9.3-17.3); White Blood Count 8.1 T/CUMM (4-12)
[2017-10-11 05:44] LABS: Calcium 9.3 MG/DL (8.5-10.1); Magnesium 1.8 MG/DL (1.8-2.4); Osmolality,Calculated 261.4 MOS/KG (273-304); Potassium 3.9 MMOL/L (3.5-5.1)
[2017-10-11 05:54] LABS: Band Neutrophils 1 % (0-10); Hypochromasia 1+; Lymphocytes 32 % (20-55); Microcytosis 1+; Segmented Neutrophils 53 % (50-85); Total Cells Counted 100
[2017-10-11 05:55] LABS: Platelet Estimate Normal; Tear Drop Cells Slight
[2017-10-11 05:56] LABS: Target Cells Slight
[2017-10-11 07:04] LABS: Barbiturates Screen,Urine Negative (Negative); Benzodiazepines Screen,Urine Negative (Negative); Cannabinoid Screen,Urine Negative (Negative); Opiate Screen,Urine Negative (Negative); Phencyclidine Screen,Urine Negative (Negative)
[2017-10-11] MEDS: MAGNESIUM CHLORIDE 64 MG TABLET PO SCH (08:39)
[2017-10-11] MEDS: SPIRONOLACTONE 25 MG TABLET PO SCH (08:40)
[2017-10-11] MEDS: ISOSORBIDE DINITRATE 20 MG TABLET PO SCH ×2 (08:40→14:48)
[2017-10-11] MEDS: APIXABAN 5 MG TABLET PO SCH (08:40)
[2017-10-11] MEDS: CARVEDILOL 6.25 MG TABLET PO SCH (08:40)
[2017-10-11] MEDS: POTASSIUM CHLORIDE 20 MEQ TABLET PO SCH ×2 (08:41→15:44)
[2017-10-11] MEDS: hydrALAZINE 10 MG TABLET PO SCH ×2 (08:41→14:47)
[2017-10-11] MEDS: metOLazone 5 MG TABLET PO SCH (08:41)
[2017-10-11] MEDS ORDERED: FUROSEMIDE 40 MG TABLET PO SCH (16:00)
[2017-10-11 16:31] VITALS: BP 101/51
== END 2017-10-11 15:40 | disposition home or self-care (01) | DRG 194 ==
LOC: N.ED 15:16 → SUATTDRO 17:33 → N.EDINP 17:33 → N.TELES 20:43
PROVIDERS: ADMIT Internal Medicine Geriatric Medicine; ATTEND Internal Medicine

== ENCOUNTER 2017-12-07 13:00 | Inpatient (IN) ==
[2017-12-07 14:57] LABS: Basophils % 0.5 % (0.0-0.8); Eosinophils # 0.1 10*3/uL (0.0-0.87); Eosinophils % 1.4 % (0.00-10.9); Hematocrit 45.8 VOL% (42.0-52.0); Hemoglobin 14.8 GM/DL (14.0-18.0); Immature Granulocytes % 0.3 %; Immature Granulocytes Absolute 0.02 #; Lymphocytes # 1.7 10*3/uL (1.4-4.0); Lymphocytes % 22.5 % (21.2-54.2); Mean Corpuscular HGB Conc 32.3 GM/DL (32-36); Mean Corpuscular Hemoglobin 28 PG (27-34); Mean Corpuscular Volume 86.4 FL (87-102); Mean Platelet Volume 10.7 FL (9.6-12.0); Monocytes # 0.8 10*3/uL (0.11-0.8); Monocytes % 10.6 % (1.7-12.7); Neutrophils % 64.7 % (38.7-73.9); Platelet Count 202 T/CUMM (130-400); Red Cell Distribution Width 20.4 % (9.3-17.3); White Blood Count 7.8 T/CUMM (4-12)
[2017-12-07 15:08] LABS: Albumin 4.2 G/DL (3.4-5.0); Bilirubin,Total 1.1 MG/DL (0.2-1.0); Calcium 9.4 MG/DL (8.5-10.1); Magnesium 1.6 MG/DL (1.8-2.4); Osmolality,Calculated 275.7 MOS/KG (273-304); Potassium 3.4 MMOL/L (3.5-5.1); Total Protein 7.6 G/DL (6.4-8.3)
[2017-12-07 15:09] LABS: INR 1.2; PT Patient Result 12.7 SECS; Partial Thromboplastin Time 25.1 SECS (0-40)
[2017-12-07] MEDS ORDERED: MAGNESIUM SULF RIDER 2 GM in PREMIX 1 EACH IV STA (16:50)
[2017-12-07] MEDS ORDERED: ONDANSETRON 4 MG/2 ML VIAL IV STA (16:51)
[2017-12-07] MEDS ORDERED: NITROGLYCERIN 2% OINT 1 INCH/GM PACK TOP STA (16:51)
[2017-12-07] MEDS ORDERED: ASPIRIN 325 MG TABLET PO STA (16:51)
[2017-12-07] MEDS ORDERED: MORPHINE 2 MG/1 ML SYRINGE IV STA (16:51)
[2017-12-07] MEDS ORDERED: METOPROLOL TARTRATE 5 MG/5 ML VIAL IV STA (16:51)
[2017-12-07] MEDS ORDERED: FUROSEMIDE 40 MG/4 ML VIAL IV STA (16:57)
[2017-12-07 17:02] LABS: Apearance,Urine CLEAR (Clear); Bilirubin,Urine Negative (Negative); Blood, Urine Negative (Negative); Glucose,Urine (UA) Negative (Negative); Hyaline Casts,Urine 4 /LPF (0-3); Ketones,Urine Negative (Negative); Mucus,Urine Occasional /LPF (Occasional); Nitrite,Urine Negative (Negative); Protein,Urine 100 MG/DL; RBC,Urine 1 /HPF (0-4); Squamous Epithelial Cell,Urine Occasional /HPF (0-10); Urine Color Amber (Yellow); Urine Specific Gravity 1.024 (1.001-1.035); WBC,Urine 2 /HPF (0-6)
[2017-12-07 17:08] LABS: Barbiturates Screen,Urine Negative (Negative); Benzodiazepines Screen,Urine Negative (Negative); Cannabinoid Screen,Urine Negative (Negative); Opiate Screen,Urine Negative (Negative); Phencyclidine Screen,Urine Negative (Negative)
[2017-12-07] MEDS ORDERED: NITROGLYCERIN 2% OINT 1 INCH/GM PACK TOP ONE (17:10)
[2017-12-07] MEDS ORDERED: ONDANSETRON 4 MG/2 ML VIAL ONE (17:10)
[2017-12-07] MEDS ORDERED: MAGNESIUM SULF RIDER 50 ML IV ONE (17:11)
[2017-12-07] MEDS ORDERED: METOPROLOL TARTRATE 5 MG/5 ML VIAL IV ONE (17:11)
[2017-12-07] MEDS ORDERED: MORPHINE 2 MG/1 ML SYRINGE ONE (17:11)
[2017-12-07] MEDS ORDERED: ASPIRIN 325 MG TABLET ONE (17:11)
[2017-12-07] MEDS ORDERED: FUROSEMIDE 100 MG/10 ML VIAL ONE (17:11)
[2017-12-07] MEDS ORDERED: ASPIRIN EC 325 MG TABLET PO STA (17:22)
[2017-12-07] MEDS ORDERED: MORPHINE 2 MG/1 ML SYRINGE IV PRN (18:02)
[2017-12-07] MEDS ORDERED: ACETAMINOPHEN 325 MG TABLET PO PRN (18:02)
[2017-12-07] MEDS ORDERED: POTASSIUM CHLORIDE 20 MEQ TABLET PO ONE (18:08)
[2017-12-07] MEDS ORDERED: ENOXAPARIN 30 MG/0.3 ML SYRINGE ONE (19:17)
[2017-12-07] MEDS ORDERED: ENOXAPARIN 40 MG/0.4 ML SYRINGE ONE (19:22)
[2017-12-07] MEDS: ENOXAPARIN 40 MG/0.4 ML SYRINGE SUBCUT SCH (21:39)
[2017-12-08 01:36] LABS: Basophils # 0.1 10*3/uL (0.0-0.2); Basophils % 0.6 % (0.0-0.8); Eosinophils # 0.1 10*3/uL (0.0-0.87); Hematocrit 42.5 VOL% (42.0-52.0); Hemoglobin 14.2 GM/DL (14.0-18.0); Immature Granulocytes % 0.2 %; Immature Granulocytes Absolute 0.02 #; Lymphocytes # 1.9 10*3/uL (1.4-4.0); Lymphocytes % 23.8 % (21.2-54.2); Mean Corpuscular HGB Conc 33.4 GM/DL (32-36); Mean Corpuscular Hemoglobin 29 PG (27-34); Mean Corpuscular Volume 85.5 FL (87-102); Mean Platelet Volume 11.1 FL (9.6-12.0); Monocytes # 0.7 10*3/uL (0.11-0.8); Monocytes % 8.6 % (1.7-12.7); Neutrophils # 5.3 10*3/uL (1.4-7.4); Neutrophils % 65.8 % (38.7-73.9); Platelet Count 197 T/CUMM (130-400); Red Blood Count 4.97 MC/CUMM (3.8-5.5); Red Cell Distribution Width 20.3 % (9.3-17.3)
[2017-12-08 02:34] LABS: Calcium 8.8 MG/DL (8.5-10.1); Magnesium 1.8 MG/DL (1.8-2.4); Osmolality,Calculated 274.8 MOS/KG (273-304); Potassium 3.7 MMOL/L (3.5-5.1)
[2017-12-08] MEDS: FUROSEMIDE 20 MG/2 ML VIAL IV SCH ×2 (08:45→15:25)
[2017-12-08] MEDS: PANTOPRAZOLE 40 MG TABLET PO SCH (08:45)
[2017-12-08] MEDS ORDERED: ALUM/MAG/SIMETH/LIDO VISC 1:1 30 ML BOTTLE PO PRN (16:24)
[2017-12-08] MEDS: ENOXAPARIN 40 MG/0.4 ML SYRINGE SUBCUT SCH (20:43)
[2017-12-09 05:49] LABS: Basophils % 0.5 % (0.0-0.8); Eosinophils # 0.1 10*3/uL (0.0-0.87); Eosinophils % 1.8 % (0.00-10.9); Hematocrit 38.9 VOL% (42.0-52.0); Hemoglobin 12.6 GM/DL (14.0-18.0); Immature Granulocytes % 0.3 %; Immature Granulocytes Absolute 0.02 #; Lymphocytes # 2.4 10*3/uL (1.4-4.0); Lymphocytes % 32.6 % (21.2-54.2); Mean Corpuscular HGB Conc 32.4 GM/DL (32-36); Mean Corpuscular Hemoglobin 28 PG (27-34); Mean Corpuscular Volume 86.3 FL (87-102); Mean Platelet Volume 11.1 FL (9.6-12.0); Monocytes # 0.7 10*3/uL (0.11-0.8); Monocytes % 9.8 % (1.7-12.7); Platelet Count 168 T/CUMM (130-400); Red Blood Count 4.51 MC/CUMM (3.8-5.5); Red Cell Distribution Width 20.3 % (9.3-17.3); White Blood Count 7.3 T/CUMM (4-12)
[2017-12-09 06:20] LABS: Calcium 8.4 MG/DL (8.5-10.1); Magnesium 1.6 MG/DL (1.8-2.4); Osmolality,Calculated 280.7 MOS/KG (273-304)
[2017-12-09] MEDS: PANTOPRAZOLE 40 MG TABLET PO SCH (09:14)
[2017-12-09] MEDS: POTASSIUM CHLORIDE 20 MEQ TABLET PO PRN ×4 (09:14→16:39)
[2017-12-09] MEDS: FUROSEMIDE 20 MG/2 ML VIAL IV SCH ×2 (09:14→15:45)
[2017-12-09] MEDS: ISOSORBIDE DINITRATE 20 MG TABLET PO SCH ×2 (15:45→22:07)
[2017-12-09] MEDS: CARVEDILOL 6.25 MG TABLET PO SCH (22:07)
[2017-12-09] MEDS: APIXABAN 5 MG TABLET PO SCH (22:07)
[2017-12-10] MEDS: ONDANSETRON 4 MG/2 ML VIAL IV PRN (02:22)
[2017-12-10 05:14] LABS: Basophils % 0.5 % (0.0-0.8); Eosinophils # 0.1 10*3/uL (0.0-0.87); Eosinophils % 0.7 % (0.00-10.9); Hematocrit 42.2 VOL% (42.0-52.0); Hemoglobin 13.8 GM/DL (14.0-18.0); Immature Granulocytes % 0.3 %; Immature Granulocytes Absolute 0.03 #; Lymphocytes # 1.9 10*3/uL (1.4-4.0); Lymphocytes % 21.2 % (21.2-54.2); Mean Corpuscular HGB Conc 32.7 GM/DL (32-36); Mean Corpuscular Hemoglobin 29 PG (27-34); Mean Corpuscular Volume 87.4 FL (87-102); Mean Platelet Volume 10.4 FL (9.6-12.0); Monocytes # 0.9 10*3/uL (0.11-0.8); Monocytes % 10.4 % (1.7-12.7); Neutrophils # 5.9 10*3/uL (1.4-7.4); Neutrophils % 66.9 % (38.7-73.9); Platelet Count 171 T/CUMM (130-400); Red Blood Count 4.83 MC/CUMM (3.8-5.5); Red Cell Distribution Width 20.6 % (9.3-17.3); White Blood Count 8.9 T/CUMM (4-12)
[2017-12-10 05:50] LABS: Calcium 8.6 MG/DL (8.5-10.1); Magnesium 1.6 MG/DL (1.8-2.4); Osmolality,Calculated 274.1 MOS/KG (273-304); Potassium 3.9 MMOL/L (3.5-5.1)
[2017-12-10 06:00] LABS: Band Neutrophils 4 % (0-10); Lymphocytes 31 % (20-55); Platelet Estimate Normal; Segmented Neutrophils 54 % (50-85); Total Cells Counted 100
[2017-12-10] MEDS: metOLazone 5 MG TABLET PO SCH (07:18)
[2017-12-10] MEDS ORDERED: SPIRONOLACTONE 25 MG TABLET PO SCH (09:00)
[2017-12-10] MEDS: APIXABAN 5 MG TABLET PO SCH (09:50)
[2017-12-10] MEDS: FUROSEMIDE 40 MG/4 ML VIAL IV SCH ×2 (09:51→16:14)
[2017-12-10] MEDS: CARVEDILOL 6.25 MG TABLET PO SCH ×2 (09:53→20:47)
[2017-12-10] MEDS: PANTOPRAZOLE 40 MG TABLET PO SCH (09:54)
[2017-12-10] MEDS: ISOSORBIDE DINITRATE 20 MG TABLET PO SCH ×2 (10:03→16:14)
[2017-12-10] MEDS: TELMISARTAN 40 MG TABLET PO SCH (10:06)
[2017-12-10] MEDS: DIGOXIN 0.125 MG TABLET PO SCH (12:58)
[2017-12-10] MEDS ORDERED: CALCIUM CARBONATE CHEW 500 MG TABLET PO PRN (13:16)
[2017-12-10] MEDS ORDERED: NALOXONE 0.4 MG/ML VIAL ONE (15:24)
[2017-12-10] MEDS ORDERED: FLUMAZENIL 0.5 MG/5 ML VIAL IV ONE ×2 (15:24→17:00)
[2017-12-10] MEDS ORDERED: NALOXONE 0.4 MG/ML VIAL IV ONE (15:25)
[2017-12-10] MEDS ORDERED: FLUMAZENIL 1 MG/10 ML VIAL IV ONE (15:25)
[2017-12-10 15:34] LABS: ABG Base Excess -8.7 MMOL/L (-2.5-2.5); ABG HCO3 17.6 MMOL/L (20-26); ABG Oxygen Saturation 99.3 % (95-100); ABG PH 7.532 (7.35-7.45); ABG TCO2 9.4 MMOL/L (23-27); Allen Test Positive
[2017-12-10 15:36] LABS: ABG PCO2 13.3 MM HG (35-48)
[2017-12-10 15:40] LABS: Basophils % 0.4 % (0.0-0.8); Eosinophils % 0.2 % (0.00-10.9); Hematocrit 47.1 VOL% (42.0-52.0); Hemoglobin 15.2 GM/DL (14.0-18.0); Immature Granulocytes % 0.4 %; Immature Granulocytes Absolute 0.05 #; Lymphocytes # 1.6 10*3/uL (1.4-4.0); Lymphocytes % 14.4 % (21.2-54.2); Mean Corpuscular HGB Conc 32.3 GM/DL (32-36); Mean Corpuscular Hemoglobin 29 PG (27-34); Mean Corpuscular Volume 89.2 FL (87-102); Mean Platelet Volume 10.6 FL (9.6-12.0); Monocytes # 0.9 10*3/uL (0.11-0.8); Monocytes % 7.5 % (1.7-12.7); Neutrophils # 8.8 10*3/uL (1.4-7.4); Neutrophils % 77.1 % (38.7-73.9); Platelet Count 188 T/CUMM (130-400); Red Blood Count 5.28 MC/CUMM (3.8-5.5); Red Cell Distribution Width 20.8 % (9.3-17.3); White Blood Count 11.4 T/CUMM (4-12)
[2017-12-10 16:01] LABS: Calcium 8.8 MG/DL (8.5-10.1); Magnesium 1.6 MG/DL (1.8-2.4); Osmolality,Calculated 270.7 MOS/KG (273-304); Potassium 5.2 MMOL/L (3.5-5.1)
[2017-12-10] MEDS ORDERED: SODIUM BICARBONATE 50 MEQ/50 ML SYRINGE IV ONE ×2 (16:03→16:37)
[2017-12-10 16:05] LABS: Troponin I Only 0.029 NG/ML (0.00-0.045)
[2017-12-10] MEDS: HEPARIN DRIP 25,000 UNITS/500 ML PREMIX IV SCH (16:14)
[2017-12-10 16:18] LABS: Albumin 4.6 G/DL (3.4-5.0); Bilirubin,Direct 1.2 MG/DL (0.0-0.20); Bilirubin,Indirect 2.3 MG/DL (0.0-1.0); Bilirubin,Total 3.5 MG/DL (0.2-1.0)
[2017-12-10] MEDS: CEFEPIME 1,000 MG in SYRINGE 1 EACH IV SCH (16:18)
[2017-12-10] MEDS: VANCOMYCIN INJ 1,250 MG in SODIUM CHLORIDE 0.9% 250 ML IV SCH (16:49)
[2017-12-10 17:25] LABS: Apearance,Urine CLOUDY (Clear); Bacteria,Urine Many /HPF (Few); Bilirubin,Urine Negative (Negative); Blood, Urine Small mg/dL (Negative); Glucose,Urine (UA) Negative (Negative); Hyaline Casts,Urine 94 /LPF (0-3); Ketones,Urine Negative (Negative); Mucus,Urine Occasional /LPF (Occasional); Nitrite,Urine Negative (Negative); Protein,Urine 100 MG/DL; RBC,Urine 7 /HPF (0-4); Squamous Epithelial Cell,Urine Occasional /HPF (0-10); Urine Color Amber (Yellow); Urine Specific Gravity 1.013 (1.001-1.035); WBC,Urine 5 /HPF (0-6)
[2017-12-10 17:36] LABS: Barbiturates Screen,Urine Negative (Negative); Benzodiazepines Screen,Urine Negative (Negative); Cannabinoid Screen,Urine Negative (Negative); Opiate Screen,Urine Positive (Negative); Phencyclidine Screen,Urine Negative (Negative)
[2017-12-10 18:40] LABS: ABG Base Excess -4.9 MMOL/L (-2.5-2.5); ABG HCO3 20.4 MMOL/L (20-26); ABG Oxygen Saturation 97.9 % (95-100); ABG PH 7.421 (7.35-7.45); ABG TCO2 15.7 MMOL/L (23-27); Allen Test Positive
[2017-12-10 19:07] LABS: Lactic Acid 6.8 MMOL/L (0.4-2.0)
[2017-12-10 19:10] LABS: Troponin I Only 0.024 NG/ML (0.00-0.045)
[2017-12-10] MEDS ORDERED: PANTOPRAZOLE 40 MG TABLET PO SCH (21:00)
[2017-12-10 22:14] LABS: INR 1.8; PT Patient Result 18.6 SECS; Partial Thromboplastin Time 28.2 SECS (0-40)
[2017-12-10] MEDS: PIPERACILLIN/TAZOBACTAM 3,375 MG in SODIUM CHLORIDE 0.9% 100 ML IV SCH (22:30)
[2017-12-11 00:12] LABS: Troponin I Only 0.025 NG/ML (0.00-0.045)
[2017-12-11 02:28] LABS: Basophils % 0.3 % (0.0-0.8); Eosinophils % 0.1 % (0.00-10.9); Hematocrit 37.9 VOL% (42.0-52.0); Hemoglobin 12.9 GM/DL (14.0-18.0); Immature Granulocytes % 0.3 %; Immature Granulocytes Absolute 0.03 #; Lymphocytes # 1.6 10*3/uL (1.4-4.0); Lymphocytes % 17.3 % (21.2-54.2); Mean Corpuscular Hemoglobin 28 PG (27-34); Mean Corpuscular Volume 83.5 FL (87-102); Mean Platelet Volume 11.5 FL (9.6-12.0); Monocytes # 0.9 10*3/uL (0.11-0.8); Monocytes % 9.7 % (1.7-12.7); Neutrophils # 6.5 10*3/uL (1.4-7.4); Neutrophils % 72.3 % (38.7-73.9); Platelet Count 182 T/CUMM (130-400); Red Blood Count 4.54 MC/CUMM (3.8-5.5); Red Cell Distribution Width 20.9 % (9.3-17.3)
[2017-12-11 03:10] LABS: Calcium 8.2 MG/DL (8.5-10.1); Magnesium 1.5 MG/DL (1.8-2.4); Osmolality,Calculated 275.5 MOS/KG (273-304); Potassium 3.9 MMOL/L (3.5-5.1)
[2017-12-11 03:14] LABS: Troponin I Only 0.023 NG/ML (0.00-0.045)
[2017-12-11 03:18] LABS: Albumin 3.8 G/DL (3.4-5.0); Bilirubin,Direct 0.97 MG/DL (0.0-0.20); Bilirubin,Indirect 2.6 MG/DL (0.0-1.0); Bilirubin,Total 3.6 MG/DL (0.2-1.0); Total Protein 6.5 G/DL (6.4-8.3)
[2017-12-11] MEDS: CEFEPIME 1,000 MG in SYRINGE 1 EACH IV SCH ×2 (04:07→16:29)
[2017-12-11] MEDS: PIPERACILLIN/TAZOBACTAM 3,375 MG in SODIUM CHLORIDE 0.9% 100 ML IV SCH ×3 (04:10→21:34)
[2017-12-11] MEDS: VANCOMYCIN INJ 1,250 MG in SODIUM CHLORIDE 0.9% 250 ML IV SCH ×2 (05:44→16:30)
[2017-12-11] MEDS: FUROSEMIDE 40 MG/4 ML VIAL IV SCH ×2 (08:43→16:29)
[2017-12-11] MEDS: TELMISARTAN 40 MG TABLET PO SCH (08:44)
[2017-12-11] MEDS: metOLazone 5 MG TABLET PO SCH (08:44)
[2017-12-11] MEDS: CARVEDILOL 6.25 MG TABLET PO SCH ×2 (08:44→21:34)
[2017-12-11] MEDS: HEPARIN DRIP 25,000 UNITS/500 ML PREMIX IV SCH ×2 (12:29→15:57)
[2017-12-11] MEDS: DIGOXIN 0.125 MG TABLET PO SCH (12:29)
[2017-12-11] MEDS ORDERED: MAGNESIUM SULF RIDER 4 GM in PREMIX 1 EACH IV PRN (13:40)
[2017-12-11] MEDS: MAGNESIUM SULF RIDER 2 GM in PREMIX 1 EACH IV PRN (14:23)
[2017-12-11 15:54] LABS: INR 1.7; Partial Thromboplastin Time 55.5 SECS (0-40)
[2017-12-12] MEDS: PIPERACILLIN/TAZOBACTAM 3,375 MG in SODIUM CHLORIDE 0.9% 100 ML IV SCH (04:28)
[2017-12-12] MEDS: CEFEPIME 1,000 MG in SYRINGE 1 EACH IV SCH (04:28)
[2017-12-12] MEDS: VANCOMYCIN INJ 1,250 MG in SODIUM CHLORIDE 0.9% 250 ML IV SCH (04:35)
[2017-12-12 06:04] LABS: Basophils # 0.1 10*3/uL (0.0-0.2); Basophils % 0.9 % (0.0-0.8); Eosinophils # 0.1 10*3/uL (0.0-0.87); Eosinophils % 0.9 % (0.00-10.9); Hematocrit 37.6 VOL% (42.0-52.0); Hemoglobin 12.3 GM/DL (14.0-18.0); Immature Granulocytes % 0.6 %; Immature Granulocytes Absolute 0.05 #; Lymphocytes # 2.1 10*3/uL (1.4-4.0); Lymphocytes % 25.8 % (21.2-54.2); Mean Corpuscular HGB Conc 32.7 GM/DL (32-36); Mean Corpuscular Hemoglobin 29 PG (27-34); Mean Platelet Volume 10.6 FL (9.6-12.0); Monocytes # 0.9 10*3/uL (0.11-0.8); Monocytes % 11.1 % (1.7-12.7); Neutrophils # 4.9 10*3/uL (1.4-7.4); Neutrophils % 60.7 % (38.7-73.9); Platelet Count 157 T/CUMM (130-400); Red Blood Count 4.32 MC/CUMM (3.8-5.5); White Blood Count 8.1 T/CUMM (4-12)
[2017-12-12 06:27] LABS: Albumin 3.7 G/DL (3.4-5.0); Bilirubin,Direct 0.94 MG/DL (0.0-0.20); Bilirubin,Indirect 1.7 MG/DL (0.0-1.0); Bilirubin,Total 2.6 MG/DL (0.2-1.0); Magnesium 1.8 MG/DL (1.8-2.4); Osmolality,Calculated 274.4 MOS/KG (273-304); Potassium 2.7 MMOL/L (3.5-5.1); Total Protein 6.5 G/DL (6.4-8.3)
[2017-12-12] MEDS: metOLazone 5 MG TABLET PO SCH (06:57)
[2017-12-12] MEDS: POTASSIUM CHLORIDE 20 MEQ TABLET PO PRN ×4 (07:01→13:04)
[2017-12-12 07:04] LABS: Giant Platelets Few; Hypochromasia 1+; Lymphocytes 36 % (20-55); Platelet Estimate Normal; Segmented Neutrophils 57 % (50-85); Total Cells Counted 100
[2017-12-12] MEDS: FUROSEMIDE 40 MG/4 ML VIAL IV SCH ×2 (08:34→15:24)
[2017-12-12] MEDS: TELMISARTAN 40 MG TABLET PO SCH (08:35)
[2017-12-12] MEDS: CARVEDILOL 6.25 MG TABLET PO SCH ×2 (08:37→21:13)
[2017-12-12] MEDS: HEPARIN DRIP 25,000 UNITS/500 ML PREMIX IV SCH (08:47)
[2017-12-12] MEDS: MAGNESIUM SULF RIDER 2 GM in PREMIX 1 EACH IV PRN (11:22)
[2017-12-12] MEDS: MEROPENEM 1,000 MG in SYRINGE 1 EACH IV SCH ×2 (13:02→21:13)
[2017-12-12] MEDS: DIGOXIN 0.125 MG TABLET PO SCH (13:02)
[2017-12-12] MEDS: ONDANSETRON 4 MG/2 ML VIAL IV PRN (14:47)
[2017-12-12] MEDS: ISOSORBIDE DINITRATE 20 MG TABLET PO SCH ×2 (15:24→21:13)
[2017-12-12] MEDS: POTASSIUM CHLORIDE 20 MEQ TABLET PO SCH (21:13)
[2017-12-13] MEDS: MEROPENEM 1,000 MG in SYRINGE 1 EACH IV SCH (04:53)
[2017-12-13 05:52] LABS: Basophils # 0.1 10*3/uL (0.0-0.2); Basophils % 0.6 % (0.0-0.8); Eosinophils # 0.1 10*3/uL (0.0-0.87); Eosinophils % 0.9 % (0.00-10.9); Hematocrit 36.4 VOL% (42.0-52.0); Hemoglobin 12.2 GM/DL (14.0-18.0); Immature Granulocytes % 0.4 %; Immature Granulocytes Absolute 0.04 #; Lymphocytes # 1.5 10*3/uL (1.4-4.0); Lymphocytes % 16.9 % (21.2-54.2); Mean Corpuscular HGB Conc 33.5 GM/DL (32-36); Mean Corpuscular Hemoglobin 29 PG (27-34); Mean Platelet Volume 10.2 FL (9.6-12.0); Monocytes # 1.2 10*3/uL (0.11-0.8); Monocytes % 13.4 % (1.7-12.7); NRBC # 0.04 10*3/uL; Neutrophils % 67.8 % (38.7-73.9); Platelet Count 184 T/CUMM (130-400); Red Blood Count 4.28 MC/CUMM (3.8-5.5); Red Cell Distribution Width 20.8 % (9.3-17.3); White Blood Count 8.9 T/CUMM (4-12)
[2017-12-13 06:25] LABS: Calcium 8.5 MG/DL (8.5-10.1); Osmolality,Calculated 270.4 MOS/KG (273-304); Potassium 2.8 MMOL/L (3.5-5.1)
[2017-12-13 06:29] LABS: Macrocytosis 1+; Polychromasia Slight; Target Cells Slight
[2017-12-13] MEDS ORDERED: ENOXAPARIN 30 MG/0.3 ML SYRINGE SUBCUT SCH (09:00)
[2017-12-13] MEDS: metOLazone 5 MG TABLET PO SCH (09:30)
[2017-12-13] MEDS: POTASSIUM CHLORIDE 20 MEQ TABLET PO PRN ×3 (09:30→14:36)
[2017-12-13] MEDS: POTASSIUM CHLORIDE 20 MEQ TABLET PO SCH ×3 (09:30→21:26)
[2017-12-13] MEDS: CARVEDILOL 6.25 MG TABLET PO SCH ×2 (09:30→21:26)
[2017-12-13] MEDS: FUROSEMIDE 40 MG/4 ML VIAL IV SCH ×2 (09:30→16:23)
[2017-12-13] MEDS: TELMISARTAN 40 MG TABLET PO SCH (09:30)
[2017-12-13] MEDS: ISOSORBIDE DINITRATE 20 MG TABLET PO SCH ×3 (09:30→21:26)
[2017-12-13 09:39] LABS: Albumin 3.8 G/DL (3.4-5.0); Bilirubin,Direct 0.73 MG/DL (0.0-0.20); Bilirubin,Indirect 1.1 MG/DL (0.0-1.0); Bilirubin,Total 1.8 MG/DL (0.2-1.0); Total Protein 6.4 G/DL (6.4-8.3)
[2017-12-13] MEDS ORDERED: SODIUM CHLORIDE 0.9% 500 ML IV ONE (12:43)
[2017-12-13] MEDS ORDERED: SODIUM CHLORIDE 0.9% 1,000 ML IV SCH (13:00)
[2017-12-13] MEDS: DIGOXIN 0.125 MG TABLET PO SCH (14:36)
[2017-12-13] MEDS: MEROPENEM 500 MG in SYRINGE 1 EACH IV SCH ×2 (14:38→21:26)
[2017-12-14] MEDS: MEROPENEM 500 MG in SYRINGE 1 EACH IV SCH (05:11)
[2017-12-14 05:34] LABS: Basophils % 0.5 % (0.0-0.8); Eosinophils # 0.1 10*3/uL (0.0-0.87); Eosinophils % 1.2 % (0.00-10.9); Hematocrit 38.3 VOL% (42.0-52.0); Hemoglobin 12.9 GM/DL (14.0-18.0); Immature Granulocytes % 0.4 %; Immature Granulocytes Absolute 0.03 #; Lymphocytes # 2.2 10*3/uL (1.4-4.0); Lymphocytes % 29.1 % (21.2-54.2); Mean Corpuscular HGB Conc 33.7 GM/DL (32-36); Mean Corpuscular Hemoglobin 29 PG (27-34); Mean Corpuscular Volume 86.3 FL (87-102); Mean Platelet Volume 11.1 FL (9.6-12.0); Monocytes % 13.6 % (1.7-12.7); NRBC # 0.02 10*3/uL; Neutrophils # 4.2 10*3/uL (1.4-7.4); Neutrophils % 55.2 % (38.7-73.9); Platelet Count 209 T/CUMM (130-400); Red Blood Count 4.44 MC/CUMM (3.8-5.5); Red Cell Distribution Width 21.2 % (9.3-17.3); White Blood Count 7.6 T/CUMM (4-12)
[2017-12-14 06:26] LABS: Calcium 8.4 MG/DL (8.5-10.1); Osmolality,Calculated 265.9 MOS/KG (273-304); Potassium 3.9 MMOL/L (3.5-5.1)
[2017-12-14 07:57] LABS: Hepatitis A Ab IgM Quant 0.08 Index; Hepatitis A Ab IgM Result Negative (Negative); Hepatitis B Core IgM Quant 0.16 Index; Hepatitis B Core IgM Result Negative (Negative); Hepatitis B Surface Ag Result Negative (Negative); Hepatitis C Virus Ab Quant 0.05 Index; Hepatitis C Virus Ab Result Negative (Negative)
[2017-12-14] MEDS ORDERED: ENOXAPARIN 40 MG/0.4 ML SYRINGE SUBCUT SCH (09:00)
[2017-12-14 10:18] LABS: Bilirubin,Direct 0.61 MG/DL (0.0-0.20); Bilirubin,Indirect 0.7 MG/DL (0.0-1.0); Bilirubin,Total 1.3 MG/DL (0.2-1.0); Total Protein 6.6 G/DL (6.4-8.3)
[2017-12-14] MEDS: metOLazone 5 MG TABLET PO SCH (10:38)
[2017-12-14] MEDS: CARVEDILOL 6.25 MG TABLET PO SCH (10:39)
[2017-12-14] MEDS: TELMISARTAN 40 MG TABLET PO SCH (10:39)
[2017-12-14] MEDS: ISOSORBIDE DINITRATE 20 MG TABLET PO SCH (10:39)
[2017-12-14] MEDS: FUROSEMIDE 40 MG/4 ML VIAL IV SCH (10:39)
[2017-12-14] MEDS: POTASSIUM CHLORIDE 20 MEQ TABLET PO SCH (10:39)
[2017-12-14 11:55] VITALS: BP 100/60
== END 2017-12-14 13:48 | disposition home or self-care (01) | DRG 194 ==
LOC: N.ED 13:00 → SUATTDRO 17:27 → N.EDINP 17:27 → N.TELES 20:46 → N.CC 12-10 15:23 → N.TELEN 12-12 16:23
PROVIDERS: ADMIT Internal Medicine; ATTEND Family Medicine